=== PATIENT | male | born 1985 | race Caucasian/White ===

== ENCOUNTER 2017-10-02 22:15 | Inpatient (IN) | payer BC, OTHER ==
--- NOTE | 2017-10-03 00:36 | ED ---
Altered Mental Status - HPI Summary HPI Summary: Pt is a 32 y/o M who came to ED for MHE as he is concerned mental illness is, "Getting out of control". Pt reports that he had "bad" depression at the beginning of the summer which has progressively worsened. He states he cannot sleep, that his muscles feel tense, and that he feels confused and axious. He denies HI, SI, and any other medical problems. Pt notes marijuana worsens symptoms and states he has schizoaffective disorder. - History Of Current Complaint Chief Complaint: EDMentalHealth Stated Complaint: MHE Time Seen by Provider: 10/02/17 22:26 Hx Obtained From: Patient Onset/Duration: Still Present Timing: Lasting Weeks - beginning of summer Aggravating Factor(s): Other - marijuana usage Alleviating Factor(s): Nothing Associated Signs And Symptoms: Positive: Recently Depressed - Allergies/Home Medications Allergies/Adverse Reactions: Allergies Allergy/AdvReac Type Severity Reaction Status Date / Time No Known Allergies Allergy Verified 10/02/17 22:17 Home Medications: Home Medications NK [No Home Medications Reported] 10/03/17 [History Confirmed 10/03/17] PMH/Surg Hx/FS Hx/Imm Hx Sensory History: Denies: Hx Legally Blind EENT History: Denies: Hx Deafness - Immunization History Date of Tetanus Vaccine: utd Date of Influenza Vaccine: none Infectious Disease History: No Infectious Disease History: Denies: Traveled Outside the [place] in Last 30 Days - Family History Known Family History: Negative: Blood Disorder - Social History Alcohol Use: Rare Substance Use Type: Reports: Cocaine, Heroin, Marijuana Substance Use Comment - Amount & Last Used: yesterday Smoking Status (MU): Former Smoker Review of Systems Negative: Fever Positive: Other - muscle tenseness Psychological: Other - depressive feeling, inability to sleep, anxious, confused feeling All Other Systems Reviewed And Are Negative: Yes Physical Exam - Summary Physical Exam Summary: Appearance: Well-appearing, Well-nourished, lying in bed comfortably Skin: Warm, dry, no obvious rash Eyes: sclera anicteric, no conjunctival pallor ENT: mucous membranes moist, pharynx appears normal Neck: Supple, nontender Respiratory: Clear to auscultation, no signs of respiratory distress Cardiovascular: Normal S1, S2. No murmurs. Normal distal pulses in tibial and radial bilaterally. Abdomen: Soft, nontender, normal active bowel sounds present Musculoskeletal: Normal, Strength/ROM Intact Neurological: A&Ox3, awake and alert, mentation is normal, speech is fluent and appropriate Psychiatric: affect is normal, does not appear anxious or depressed Triage Information Reviewed: Yes Vital Signs On Initial Exam: Initial Vitals Temp Pulse Resp BP Pulse Ox 99 F 102 17 157/93 95 10/02/17 22:18 10/02/17 22:18 10/02/17 22:18 10/02/17 22:18 10/02/17 22:18 Vital Signs Reviewed: Yes Diagnostics - Vital Signs Vital Signs Temp Pulse Resp BP Pulse Ox 10/02/17 22:18 99 F 102 17 157/93 95 - Laboratory Lab Statement: Any lab studies that have been ordered have been reviewed, and results considered in the medical decision making process. Altered Mental Statu Course/Dx - Diagnoses Provider Diagnoses: Schizoaffective disorder Discharge - Sign-Out/Discharge Documenting (check all that apply): Patient Departure - Discharge Plan Condition: Fair Disposition: PSYCHIATRIC FACILITY-[facility] [place] - Billing Disposition and Condition Condition: FAIR Disposition: Psychiatric Facility [facility] [place]
[2017-10-03] MEDS ORDERED: Acetaminophen TAB* 325 MG PO PRN (04:11)
[2017-10-03] MEDS ORDERED: CMC:Desvenlafaxine (NF) 50 MG TAB PO SCH (09:00)
[2017-10-03] MEDS ORDERED: DESVENLAFAXINE 25 MG PO SCH (09:00)
[2017-10-03] MEDS ORDERED: Paliperidone ER TAB* 1.5 MG TAB.ER PO SCH (09:00)
[2017-10-03] MEDS ORDERED: Desvenlafaxine (NF) 50 MG TAB PO ONE (11:00)
[2017-10-03] MEDS ORDERED: LORazepam TAB(*) 1 MG ONE (11:06)
[2017-10-03] MEDS ORDERED: LORazepam INJ* 2 MG/ML 1 ML VIAL IM ONE (11:30)
[2017-10-03] MEDS: Vitamin THERAPEUTIC TAB PO SCH (12:47)
[2017-10-03] MEDS: Amantadine CAP* 100 MG PO SCH ×2 (12:47→20:43)
[2017-10-03] MEDS: LAMOTRIGINE 300 MG PO SCH (14:45)
[2017-10-03] MEDS: Diazepam TAB(*) 5 MG PO SCH ×2 (16:19→20:43)
--- NOTE | 2017-10-03 22:33 | HP ---
HISTORY AND PHYSICAL: DATE OF ADMISSION: 10/03/17 PROVIDER: Delphine Suh NP, in Psychiatry. SUPERVISING PHYSICIAN: Mauricio Ramos MD * (DICTATED BY DELPHINE SUH NP ) JUSTIFICATION FOR ADMISSION: The patient is in need of 24-hour supervision and care secondary to gross disorganization. CHIEF COMPLAINT: "I don't really know, I'm getting worse." HISTORY OF PRESENT ILLNESS: The patient is a 32-year-old single white male with a history of schizoaffective disorder, who arrives, brought in by himself and is on a voluntary status after deciding that he was getting sicker and he did not know how to get better. The story is hard to come by as he was catatonic this morning and does not feel like talking today. What can be gathered from collateral from the [facility] is that he has recently moved to [place] in August and the stress perhaps has gotten to him causing him to begin to go down a road of mild psychosis that continues to get worse. PAST PSYCHIATRIC HISTORY: Bob has several previous admissions to other hospitals. He did not offer those locations. He moved recently from [place] and had a therapist and a prescriber there. He is not endorsing suicidal or homicidal ideation. He did hint that he could be violent. It is unclear as he is not currently a good historian as to trauma, TBI, or previous psych meds. PAST MEDICAL HISTORY: Difficult to ascertain as he was unwilling to talk at this time and was very anxious. FAMILY HISTORY: On mom's side, there is bipolar disorder for 2 generations. SOCIAL HISTORY: He is from [place]. He has a sister, they are not close, it does not appear. His mom and dad live in [place]. He is on SSI. He does not have employment. SUBSTANCE ABUSE HISTORY: He is not a nicotine user and has recently smoked marijuana and states that that made it much worse. REVIEW OF SYSTEMS: The patient reports feeling fatigued. He denies shortness of breath, heat or cold intolerance, chest pain, or abdominal pain. He denies neurological symptoms. He denies fevers or changes in weight. PHYSICAL EXAMINATION VITAL SIGNS: At 7:40 this morning, 99.7 temperature, pulse 107, respirations 16 , oxygen saturation 98%, blood pressure 136/67. For further exam data, please see the emergency department records. MENTAL STATUS EXAMINATION: This is a somewhat tall, averagely built man with a luxurious aguilera and a very shiny bald head. He is clearly anxious and is not in a talkative mood. He denies SI and HI. His insight and judgment are poor. He is alert and oriented x3. LABORATORY DATA: There are no current laboratory data. DIAGNOSES: Bath I: Schizoaffective disorder. Bath II: Deferred. IMPRESSION: This is a 32-year-old man who has had multiple hospitalizations and brought himself to the hospital given the insight that he was getting worse and he was afraid of becoming psychotic. PLAN: The patient is admitted to the adult behavioral health unit and placed on q.15-minute checks for his own safety. He is encouraged to participate in supportive milieu, individual, and group therapies. Estimated length of stay is 5 to 7 days. We may obtain an MMPI for diagnostic clarification. We will titrate medications to efficacy and monitor for mood and thought content. DELPHINE SUH, DANIA [id number]/CPS #: [id number] DAVID
[2017-10-04] MEDS ORDERED: LORazepam INJ* 2 MG/ML 1 ML VIAL IM ONE (06:41)
[2017-10-04] MEDS ORDERED: LORazepam INJ* 2 MG/ML 1 ML VIAL ONE (06:45)
[2017-10-04 08:24] LABS: ABS Basophils 0 10^3/ul (0-0.2); ABS Eosinophils 0 10^3/ul (0-0.6); ABS Monocytes 0.3 10^3/ul (0-0.8); ABS Nucleated RBC 0 10^3/ul; Eosinophil % 0.3 % (0-6); Hematocrit 42 % (42-52); Hemoglobin 14.5 g/dl (14.0-18.0); Lymphocyte % 15.1 % (25-47); Mean Corpuscular HGB Conc 34 g/dl (31-36); Mean Corpuscular Hemoglobin 31 pg (27-31); Mean Corpuscular Volume 91 fL (80-94); Mean Platelet Volume 8.4 um3 (7.4-10.4); Nucleated Red Blood Cells % 0; Platelet Count 245 10^3/ul (150-450); Red Blood Count 4.67 10^6/ul (4.00-5.40); Red Cell Distribution Width 14 % (10.5-15); White Blood Count 6.3 10^3/ul (3.5-10.8)
[2017-10-04 08:41] LABS: EGFR Non-African American 125.3 (>60)
[2017-10-04] MEDS: Amantadine CAP* 100 MG PO SCH ×2 (13:47→21:23)
[2017-10-04] MEDS: LAMOTRIGINE 300 MG PO SCH (13:51)
[2017-10-04] MEDS: Paliperidone ER TAB* 3 MG TAB.ER PO SCH (13:51)
[2017-10-04] MEDS: Diazepam TAB(*) 5 MG PO SCH ×3 (13:51→21:23)
[2017-10-04] MEDS: Vitamin THERAPEUTIC TAB PO SCH (13:51)
[2017-10-04] MEDS: DESVENLAFAXINE 25 MG PO SCH (13:51)
[2017-10-05] MEDS: Amantadine CAP* 100 MG PO SCH ×2 (08:07→22:07)
[2017-10-05] MEDS: Paliperidone ER TAB* 3 MG TAB.ER PO SCH (08:07)
[2017-10-05] MEDS: Diazepam TAB(*) 5 MG PO SCH ×3 (08:07→22:07)
[2017-10-05] MEDS: DESVENLAFAXINE 25 MG PO SCH (08:08)
[2017-10-05] MEDS: LAMOTRIGINE 300 MG PO SCH (08:08)
[2017-10-05] MEDS: Vitamin THERAPEUTIC TAB PO SCH (08:08)
--- NOTE | 2017-10-05 16:30 | PN ---
Subjective - Subjective Date of Service: 10/05/17 Subjective: Found Bob lying supine in bed with his eyes open. He does not respond to my questions. Staff indicate that he has been partially compliant with meds and meals, has talks occasionally to select staff and has been observing moving. Objective - Appearance Appearance: Well Developed/Nourished Dysmorphic Features: No Hygiene: Normal Grooming: Well Kept - Behavior Psychomotor Activities: Normal Exhibits Abnormal Movement: No - Attitude and Relatedness Attitude and Relatedness: uncooperative Eye Contact: Poor - Affect Observed Affect: Unvariable - Level of Consciousness Level of Consciousness: Alert - Group Participation Particating in Group Activities: No - Medication Management Medication Management Adherence: Partial Assessment - Assessment Merits Inpatient Hospitalization: For Ongoing Evaluation, Consolidate Improvements, For Discharge Planning Inpatient DSM-V Dx: F25.9 Clinical Impression: Ongoing impairing psychotic symptoms (including catatonia), partially compliant with diazepam, he needs continued admission for treatment. Plan - Plan Treatment Plan: Name: LILIANE ROJAS Birthdate: 1985 [id number] Continued Medication Management: Continue Outpt Medication Medications: Current Medications Acetaminophen (Tylenol Tab*) 650 mg PO Q4H PRN PRN Reason: PAIN or TEMP > 101 F Al Hydrox/Mg Hydrox/Simethicone (Maalox Plus*) 30 ml PO Q4H PRN PRN Reason: INDIGESTION Amantadine HCl (Symmetrel Cap*) 100 mg PO BID [facility] Last Admin: 10/05/17 08:07 Dose: 100 mg Desvenlafaxine Succinate (Pristiq (Nf)) 25 mg PO DAILY [facility] Last Admin: 10/05/17 08:08 Dose: 25 mg Diazepam (Valium Tab(*)) 5 mg PO TID [facility] Last Admin: 10/05/17 15:00 Dose: 5 mg Multivitamins (Theragran Tab*) 1 tab PO DAILY [facility] Last Admin: 10/05/17 08:08 Dose: 1 tab [facility]:Lamotrigine Er (300 Mg Tab) 1 dose PO DAILY [facility] Last Admin: 10/05/17 08:08 Dose: 1 dose Paliperidone (Invega Er Tab*) 3 mg PO DAILY [facility] Last Admin: 10/05/17 08:07 Dose: 3 mg - Discharge Plan Discharge Plan: Outpatient Follow Up Outpatient Program: [facility]
[2017-10-06] MEDS: Amantadine CAP* 100 MG PO SCH ×3 (09:38→19:53)
[2017-10-06] MEDS: DESVENLAFAXINE 25 MG PO SCH ×2 (09:38→09:43)
[2017-10-06] MEDS: Diazepam TAB(*) 5 MG PO SCH ×3 (09:38→13:53)
[2017-10-06] MEDS: Paliperidone ER TAB* 3 MG TAB.ER PO SCH ×2 (09:39→09:44)
[2017-10-06] MEDS: LAMOTRIGINE 300 MG PO SCH ×2 (09:39→09:43)
[2017-10-06] MEDS: Vitamin THERAPEUTIC TAB PO SCH ×2 (09:39→09:44)
--- NOTE | 2017-10-06 14:46 | PN ---
Subjective - Subjective Date of Service: 10/06/17 Service Type: 30842 Hosp care 15 min low complexity Subjective: Bob is not responsive to conversation or commands. He continues to lie still much of the time with hand to his head. He has not eaten or had much to drink. We will reinitiate the Ativan 2 mg IM injections for catatonia [id number]. Objective - Appearance Appearance: Well Developed/Nourished Dysmorphic Features: No Hygiene: Normal Grooming: Disheveled - Behavior Psychomotor Activities: Abnormal-Decreased Exhibits Abnormal Movement: Yes - Attitude and Relatedness Attitude and Relatedness: catatonic Eye Contact: Poor - Speech Latencies: Long Quantity: Terse - Affect Observed Affect: Unvariable - Thought Process Patient's Thought Process: Disorganized - Level of Consciousness Level of Consciousness: Obtunded - Impulse Control Impulse Control: Poor - Insight and Judgement Insight and Judgement: Poor - Group Participation Particating in Group Activities: No - Medication Management Medication Management Adherence: Partial - Additional Observations Comments: Bob is catatonic at this time and occasionally "awakens" enough to get up and wander the unit. He then goes back to bed. He is unable to care for himself adequately at this time. Assessment - Assessment Merits Inpatient Hospitalization: For Immediate Safety, To Initiate Treatment, For Ongoing Evaluation Inpatient DSM-V Dx: F25.9 Clinical Impression: Bob carries a diagnosis of schizoaffective disorder. He is presenting with catatonic symptoms at this time and is unable to communicate effectively. Plan - Plan Treatment Plan: Name: LILIANE ROJAS Birthdate: 1985 [id number] Bob will be treated for catatonia and psychosis: Ativan (IM) or Klonopin (oral , as he stated during the only time he was conversant with me, Ativan makes his heart race when he takes it orally) and Invega. Medications: Current Medications Acetaminophen (Tylenol Tab*) 650 mg PO Q4H PRN PRN Reason: PAIN or TEMP > 101 F Al Hydrox/Mg Hydrox/Simethicone (Maalox Plus*) 30 ml PO Q4H PRN PRN Reason: INDIGESTION Amantadine HCl (Symmetrel Cap*) 100 mg PO BID [facility] Last Admin: 10/06/17 09:43 Dose: Not Given Desvenlafaxine Succinate (Pristiq (Nf)) 25 mg PO DAILY [facility] Last Admin: 10/06/17 09:43 Dose: Not Given Lamotrigine (Lamictal Xr (Nf)) 600 mg PO DAILY [facility] Lorazepam (Ativan Inj*) 2 mg IM Q6H PRN PRN Reason: catatonia Multivitamins (Theragran Tab*) 1 tab PO DAILY [facility] Last Admin: 10/06/17 09:44 Dose: Not Given Paliperidone (Invega Er Tab*) 6 mg PO DAILY [facility]
[2017-10-06] MEDS: LORazepam INJ* 2 MG/ML 1 ML VIAL IM PRN (19:51)
[2017-10-07] MEDS ORDERED: Paliperidone ER TAB* 3 MG TAB.ER PO SCH (09:00)
[2017-10-07] MEDS: LORazepam INJ* 2 MG/ML 1 ML VIAL IM PRN ×2 (09:28→15:40)
--- NOTE | 2017-10-07 11:26 | PN ---
Subjective - Subjective Date of Service: 10/07/17 Service Type: 64849 Hosp care 15 min low complexity Subjective: Bob continues with catatonic periods that are interrupted by moments of odd behaviors. He seems to be posturing at times and then engaging in some disorganized behavior such as not swallowing pills he agreed to take, urinating in the water fountain, gesturing intensely. Objective - Appearance Appearance: Well Developed/Nourished Dysmorphic Features: No Grooming: Disheveled - Behavior Psychomotor Activities: Abnormal-Decreased Exhibits Abnormal Movement: Yes - Attitude and Relatedness Attitude and Relatedness: Psychotically Related Eye Contact: Poor - Speech Latencies: Long Quantity: Terse - Affect Observed Affect: Unvariable Affect Consistent with: Dysphoria - Thought Process Patient's Thought Process: Disorganized - Level of Consciousness Level of Consciousness: Obtunded - Impulse Control Impulse Control: Poor - Insight and Judgement Insight and Judgement: Poor - Group Participation Particating in Group Activities: No - Medication Management Medication Management Adherence: Partial - Additional Observations Comments: The largely catatonic nature of Bob's behavior and the intermittent moments of activity do not demonstrate that there is any ability for Bob assert much control over himself, including making his needs known. Assessment - Assessment Merits Inpatient Hospitalization: For Immediate Safety, For Ongoing Evaluation Inpatient DSM-V Dx: F25.9 Clinical Impression: Bob's diagnosis of schizoaffective disorder can be linked with his demonstrated catatonia. Plan - Plan Treatment Plan: Name: LILIANE ROJAS Birthdate: 1985 [id number] Bob will continiue to be treated with Ativan 2 mg IM and Invega. Tomorrow the dose will be reduced back to 3 mg as Bob's typical dose is apparently 1.5 mg. Medications: Current Medications Acetaminophen (Tylenol Tab*) 650 mg PO Q4H PRN PRN Reason: PAIN or TEMP > 101 F Al Hydrox/Mg Hydrox/Simethicone (Maalox Plus*) 30 ml PO Q4H PRN PRN Reason: INDIGESTION Amantadine HCl (Symmetrel Cap*) 100 mg PO BID [facility] Last Admin: 10/06/17 19:53 Dose: Not Given Desvenlafaxine Succinate (Pristiq (Nf)) 25 mg PO DAILY [facility] Last Admin: 10/06/17 09:43 Dose: Not Given Lamotrigine (Lamictal Xr (Nf)) 600 mg PO DAILY [facility] Lorazepam (Ativan Inj*) 2 mg IM Q6H PRN PRN Reason: catatonia Last Admin: 10/07/17 09:28 Dose: 2 mg Multivitamins (Theragran Tab*) 1 tab PO DAILY [facility] Last Admin: 10/06/17 09:44 Dose: Not Given Paliperidone (Invega Er Tab*) 6 mg PO DAILY [facility] - Discharge Plan Discharge Plan: Outpatient Follow Up
[2017-10-07] MEDS: DESVENLAFAXINE 25 MG PO SCH (12:52)
[2017-10-07] MEDS: LAMOTRIGINE 300 MG PO SCH ×2 (12:52→12:55)
[2017-10-07] MEDS: Vitamin THERAPEUTIC TAB PO SCH (12:54)
[2017-10-07] MEDS: Amantadine CAP* 100 MG PO SCH ×2 (12:54→21:50)
[2017-10-07] MEDS ORDERED: clonazePAM TAB(*) 1 MG ONE (13:13)
[2017-10-07] MEDS: clonazePAM TAB(*) 1 MG PO SCH ×2 (13:14→21:50)
[2017-10-08] MEDS: LORazepam INJ* 2 MG/ML 1 ML VIAL IM PRN (01:36)
[2017-10-08] MEDS: DESVENLAFAXINE 25 MG PO SCH (09:51)
[2017-10-08] MEDS: LAMOTRIGINE 300 MG PO SCH (09:51)
[2017-10-08] MEDS: Amantadine CAP* 100 MG PO SCH ×2 (09:51→21:45)
[2017-10-08] MEDS: clonazePAM TAB(*) 1 MG PO SCH ×5 (09:52→21:45)
[2017-10-08] MEDS: Paliperidone ER TAB* 3 MG TAB.ER PO SCH (09:52)
[2017-10-08] MEDS: Vitamin THERAPEUTIC TAB PO SCH (09:52)
--- NOTE | 2017-10-08 13:51 | PN ---
Subjective - Subjective Date of Service: 10/08/17 Service Type: 48348 Hosp care 15 min low complexity Subjective: Bob is lying in bed each time I go to see him. Today he did take medication and received benzodiazepines, which do seem to "loosen" his movements for a time. These movements and the behaviors associated with them are disorganized, however. Objective - Appearance Appearance: Well Developed/Nourished Dysmorphic Features: No Grooming: Disheveled - Behavior Psychomotor Activities: Abnormal-Decreased Exhibits Abnormal Movement: Yes - Attitude and Relatedness Attitude and Relatedness: Psychotically Related Eye Contact: Poor - Speech Latencies: Long Quantity: Terse - Affect Observed Affect: Constricted Affect Consistent with: Dysphoria - Thought Process Patient's Thought Process: Disorganized Thought Content: Yes Suicidal Planning - Has made statements recently that he doesn't deserve to live. - Sensorium Type of Hallucinations: Visual: Yes - Has made statements recently that these hallucinations are occuring., Auditory: Yes - Level of Consciousness Level of Consciousness: Obtunded Orientation: No Intact, No Orientated to Time - Impulse Control Impulse Control: Poor - Insight and Judgement Insight and Judgement: Poor - Group Participation Particating in Group Activities: No - Medication Management Medication Management Adherence: Partial - Additional Observations Comments: The largely catatonic nature of Bob's behavior and the intermittent moments of activity do not demonstrate that there is any ability for Bob assert much control over himself, including making his needs known. Previous notes indicate that he has been experiencing hallucinations. This has not been assessed recently as he has not been communicative. Assessment - Assessment Merits Inpatient Hospitalization: For Immediate Safety, For Ongoing Evaluation Inpatient DSM-V Dx: F25.9 Clinical Impression: Bob's diagnosis of schizoaffective disorder can be linked with his demonstrated catatonia. Bob's presentation does not seem to be improving. Plan - Plan Treatment Plan: Name: LILIANE ROJAS Birthdate: 1985 [id number] Bob will continiue to be treated with Ativan 2 mg IM and Invega. Tomorrow the dose will be reduced back to 3 mg as Bob's typical dose is apparently 1.5 mg and 6 mg may be overwhelming to him and his body, thus causing other, undesirable side effects. Medications: Current Medications Acetaminophen (Tylenol Tab*) 650 mg PO Q4H PRN PRN Reason: PAIN or TEMP > 101 F Al Hydrox/Mg Hydrox/Simethicone (Maalox Plus*) 30 ml PO Q4H PRN PRN Reason: INDIGESTION Amantadine HCl (Symmetrel Cap*) 100 mg PO BID [facility] Last Admin: 10/08/17 09:51 Dose: 100 mg Clonazepam (Klonopin Tab(*)) 1 mg PO TID [facility] Last Admin: 10/08/17 13:16 Dose: Not Given Desvenlafaxine Succinate (Pristiq (Nf)) 25 mg PO DAILY [facility] Last Admin: 10/08/17 09:51 Dose: 25 mg Lamotrigine (Lamictal Xr (Nf)) 600 mg PO DAILY [facility] Last Admin: 10/08/17 09:51 Dose: 600 mg Lorazepam (Ativan Inj*) 2 mg IM Q6H PRN PRN Reason: catatonia Last Admin: 10/08/17 01:36 Dose: 2 mg Multivitamins (Theragran Tab*) 1 tab PO DAILY [facility] Last Admin: 10/08/17 09:52 Dose: 1 tab Paliperidone (Invega Er Tab*) 3 mg PO DAILY [facility] Last Admin: 10/08/17 09:52 Dose: 3 mg
[2017-10-09] MEDS: clonazePAM TAB(*) 1 MG PO SCH (08:59)
[2017-10-09] MEDS: Amantadine CAP* 100 MG PO SCH ×2 (08:59→21:48)
[2017-10-09] MEDS: Paliperidone ER TAB* 3 MG TAB.ER PO SCH (08:59)
[2017-10-09] MEDS: Vitamin THERAPEUTIC TAB PO SCH (08:59)
[2017-10-09] MEDS: DESVENLAFAXINE 25 MG PO SCH (09:00)
[2017-10-09] MEDS: LAMOTRIGINE 300 MG PO SCH (09:00)
[2017-10-09] MEDS ORDERED: LORazepam INJ* 2 MG/ML 1 ML VIAL IM PRN (13:00)
[2017-10-09] MEDS ORDERED: LORazepam TAB(*) 1 MG PO SCH (13:00)
--- NOTE | 2017-10-09 14:53 | PN ---
Subjective - Subjective Date of Service: 10/09/17 Service Type: 32231 Hosp care 25 min moderate complexity Subjective: I've been to visit Bob several times and between 1:15 and 3 he's been awake and conversant. We discussed what the plan is, what medication changes we've made, and what his expectations can be going forward. Bob was reserved. He also did not know how to find his room, seeming to struggle with which was right and left. He spoke on the phone with his mom and dad for quite some time. Objective - Appearance Appearance: Well Developed/Nourished, Healthy Appearing Dysmorphic Features: No Hygiene: Normal Grooming: Disheveled - Behavior Psychomotor Activities: Abnormal-Decreased Exhibits Abnormal Movement: Yes - Attitude and Relatedness Attitude and Relatedness: Psychotically Related Eye Contact: Fair - Speech Quality: Unpressured Latencies: Short Quantity: Terse - Mood Patient's Decription of Mood: "Okay" - Affect Observed Affect: Depressed Affect Consistent with: Dysphoria - Thought Process Patient's Thought Process: Impoverished Thought Content: Yes Passive Wish, Yes Paranoid Ideation, No Suicidal Planning, No Homicidal Ideation - Level of Consciousness Level of Consciousness: Lethargic Orientation: Yes Orientated to Place, No Orientated to Time - Impulse Control Impulse Control: Poor - Insight and Judgement Insight and Judgement: Poor - Group Participation Particating in Group Activities: No - Medication Management Medication Management Adherence: Yes - Additional Observations Comments: Bob, this afternoon, became more conversive and talked to his parents for quite some time on the phone. He appears healthy and well and asked reasonable questions. He does endorse being depressed. Assessment - Assessment Merits Inpatient Hospitalization: For Immediate Safety Inpatient DSM-V Dx: F25.9 Clinical Impression: Bob's diagnosis of schizoaffective disorder can be linked with his demonstrated catatonia. Bob's presentation has at least temporarily improved. During his more catatonic states he endorsed suicidal thoughts. At this point he endorses depression. Plan - Plan Treatment Plan: Name: LILIANE ROJAS Birthdate: 1985 [id number] Bob will continiue to be treated with Ativan 2 mg IM and Invega. Today the dose was be reduced back to 3 mg as Bob's typical dose is apparently 1.5 mg and 6 mg may be overwhelming to him and his body, thus causing other, undesirable side effects. Ativan remains as 2 mg Q 6 hours. I spoke with Bob and he was pleasant, although with latencies and some odd relatedness. Continue with this treatment as Bob is tolerating it and he seems to be improving. Medications: Current Medications Acetaminophen (Tylenol Tab*) 650 mg PO Q4H PRN PRN Reason: PAIN or TEMP > 101 F Al Hydrox/Mg Hydrox/Simethicone (Maalox Plus*) 30 ml PO Q4H PRN PRN Reason: INDIGESTION Amantadine HCl (Symmetrel Cap*) 100 mg PO BID [facility] Last Admin: 10/09/17 08:59 Dose: 100 mg Desvenlafaxine Succinate (Pristiq (Nf)) 25 mg PO DAILY [facility] Last Admin: 10/09/17 09:00 Dose: 25 mg Lamotrigine (Lamictal Xr (Nf)) 600 mg PO DAILY [facility] Last Admin: 10/09/17 09:00 Dose: 600 mg Lorazepam (Ativan Inj*) 2 mg IM Q6H PRN PRN Reason: IF PATIENT CANNOT TAKE PO MED Lorazepam (Ativan Tab(*)) 2 mg PO Q6H [facility] Multivitamins (Theragran Tab*) 1 tab PO DAILY [facility] Last Admin: 10/09/17 08:59 Dose: 1 tab Paliperidone (Invega Er Tab*) 3 mg PO DAILY [facility] Last Admin: 10/09/17 08:59 Dose: 3 mg
[2017-10-09] MEDS: LORazepam TAB(*) 1 MG PO SCH (21:48)
[2017-10-10] MEDS: LORazepam TAB(*) 1 MG PO SCH ×4 (02:53→22:18)
--- NOTE | 2017-10-10 09:06 | PN ---
Subjective - Subjective Date of Service: 10/10/17 Service Type: [id number] Hosp care 15 min low complexity Subjective: Patient seen for coverage for Delphine Suh NP. Patient disorganized and lying in another patient's bed. He was informed of this and with prompts, able to be directed to his room. Last evening, he was increasingly oriented and interactive. He identifies that he is improving with current medications. Objective - Appearance Appearance: Well Developed/Nourished Dysmorphic Features: Yes Hygiene: Normal Grooming: Fairly Well Kept - Behavior Psychomotor Activities: Abnormal-Decreased Exhibits Abnormal Movement: Yes - Attitude and Relatedness Attitude and Relatedness: Psychotically Related Eye Contact: Poor - Speech Quality: Unpressured Latencies: Short Quantity: Terse - Mood Patient's Decription of Mood: "Good" - Affect Observed Affect: Depressed Affect Consistent with: Dysphoria - Thought Process Patient's Thought Process: Coherent, Impoverished Thought Content: Yes Passive Wish, Yes Suicidal Planning, Yes Homicidal Ideation, Yes Paranoid Ideation - Sensorium Experiencing Hallucinations: No, Sensorium is Clear Type of Hallucinations: Visual: No, Auditory: No, Command: No - Level of Consciousness Level of Consciousness: Lethargic Orientation: Yes Intact, Yes Orientated to Time, Yes Orientated to Place, Yes Orientated to Person - Impulse Control Impulse Control: Poor - Insight and Judgement Insight and Judgement: Fair - Group Participation Particating in Group Activities: No - Medication Management Medication Management Adherence: Yes Assessment - Assessment Merits Inpatient Hospitalization: For Immediate Safety, For Stabilization, Consolidate Improvements Inpatient DSM-V Dx: F25.9 Clinical Impression: Bob's diagnosis of schizoaffective disorder can be linked with his demonstrated catatonia. Bob's presentation has at least temporarily improved. During his more catatonic states he endorsed suicidal thoughts. At this point he endorses depression. Plan - Plan Treatment Plan: Name: LILIANE ROJAS Birthdate: 1985 [id number] continue acute intensive psychiatric treatment. continue current medications. discharge planning to include family and outpatient providers. Continued Medication Management: Start Medication Medications: Current Medications Acetaminophen (Tylenol Tab*) 650 mg PO Q4H PRN PRN Reason: PAIN or TEMP > 101 F Al Hydrox/Mg Hydrox/Simethicone (Maalox Plus*) 30 ml PO Q4H PRN PRN Reason: INDIGESTION Amantadine HCl (Symmetrel Cap*) 100 mg PO BID [facility] Last Admin: 10/09/17 21:48 Dose: 100 mg Desvenlafaxine Succinate (Pristiq (Nf)) 25 mg PO DAILY [facility] Last Admin: 10/09/17 09:00 Dose: 25 mg Lamotrigine (Lamictal Xr (Nf)) 600 mg PO DAILY [facility] Last Admin: 10/09/17 09:00 Dose: 600 mg Lorazepam (Ativan Inj*) 2 mg IM Q6H PRN PRN Reason: IF PATIENT CANNOT TAKE PO MED Lorazepam (Ativan Tab(*)) 2 mg PO Q6H [facility] Last Admin: 10/10/17 02:53 Dose: Not Given Multivitamins (Theragran Tab*) 1 tab PO DAILY [facility] Last Admin: 10/09/17 08:59 Dose: 1 tab Paliperidone (Invega Er Tab*) 3 mg PO DAILY [facility] Last Admin: 10/09/17 08:59 Dose: 3 mg - Discharge Plan Discharge Plan: Outpatient Follow Up
[2017-10-10] MEDS: LAMOTRIGINE 300 MG PO SCH ×2 (09:48→09:52)
[2017-10-10] MEDS: DESVENLAFAXINE 25 MG PO SCH ×3 (09:51→10:38)
[2017-10-10] MEDS: Amantadine CAP* 100 MG PO SCH ×2 (09:51→20:19)
[2017-10-10] MEDS: Paliperidone ER TAB* 3 MG TAB.ER PO SCH (09:52)
[2017-10-10] MEDS: Vitamin THERAPEUTIC TAB PO SCH (09:52)
[2017-10-11] MEDS: LORazepam TAB(*) 1 MG PO SCH ×4 (05:28→19:02)
[2017-10-11] MEDS: Vitamin THERAPEUTIC TAB PO SCH (09:22)
[2017-10-11] MEDS: Amantadine CAP* 100 MG PO SCH ×2 (09:22→21:08)
[2017-10-11] MEDS: Paliperidone ER TAB* 3 MG TAB.ER PO SCH (09:22)
[2017-10-11] MEDS: DESVENLAFAXINE 25 MG PO SCH (10:06)
[2017-10-11] MEDS: LAMOTRIGINE 300 MG PO SCH (10:06)
[2017-10-12] MEDS: LORazepam TAB(*) 1 MG PO SCH ×4 (07:40→21:05)
[2017-10-12] MEDS: Vitamin THERAPEUTIC TAB PO SCH (09:49)
[2017-10-12] MEDS: Paliperidone ER TAB* 3 MG TAB.ER PO SCH (09:49)
[2017-10-12] MEDS: Amantadine CAP* 100 MG PO SCH ×2 (09:49→21:06)
[2017-10-12] MEDS: LAMOTRIGINE 300 MG PO SCH (09:50)
[2017-10-12] MEDS: DESVENLAFAXINE 25 MG PO SCH (09:50)
--- NOTE | 2017-10-12 18:21 | PN ---
Subjective - Subjective Date of Service: 10/12/17 Service Type: [id number] Hosp care 15 min low complexity Subjective: Bob was in his room because he reports that he cannot tolerate the noise on the unit. Moreover he continues to have visual hallucinations. No more Catatonia reported. Wants to quit doing drugs. Objective - Appearance Appearance: Healthy Appearing Dysmorphic Features: No Hygiene: Mal-odorous Grooming: Disheveled - Behavior Psychomotor Activities: Normal Exhibits Abnormal Movement: No - Attitude and Relatedness Attitude and Relatedness: Cooperative Eye Contact: Fair - Speech Quality: Unpressured Latencies: Normal Quantity: Appropriate - Mood Patient's Decription of Mood: "Okay" - Affect Observed Affect: Non-labile - Thought Process Patient's Thought Process: Coherent, Goal Directed Thought Content: No Passive Wish, No Suicidal Planning, No Homicidal Ideation, No Paranoid Ideation - Sensorium Experiencing Hallucinations: Yes Type of Hallucinations: Visual: Yes, Auditory: No, Command: No - Level of Consciousness Level of Consciousness: Alert Orientation: Yes Intact, Yes Orientated to Time, Yes Orientated to Place, Yes Orientated to Person - Impulse Control Impulse Control: Intact - Insight and Judgement Insight and Judgement: Poor - Group Participation Particating in Group Activities: No - Medication Management Medication Management Adherence: Yes Assessment - Assessment Merits Inpatient Hospitalization: For Immediate Safety, For Stabilization, For Discharge Planning Inpatient DSM-V Dx: F25.9 Clinical Impression: Still symptomatic. Plan - Plan Treatment Plan: Name: LILIANE ROJAS Birthdate: 1985 [id number] Continued Medication Management: Continue Outpt Medication Medications: Current Medications Acetaminophen (Tylenol Tab*) 650 mg PO Q4H PRN PRN Reason: PAIN or TEMP > 101 F Al Hydrox/Mg Hydrox/Simethicone (Maalox Plus*) 30 ml PO Q4H PRN PRN Reason: INDIGESTION Amantadine HCl (Symmetrel Cap*) 100 mg PO BID [facility] Last Admin: 10/12/17 09:49 Dose: 100 mg Desvenlafaxine Succinate (Pristiq (Nf)) 25 mg PO DAILY [facility] Last Admin: 10/12/17 09:50 Dose: 25 mg Lamotrigine (Lamictal Xr (Nf)) 600 mg PO DAILY [facility] Last Admin: 10/12/17 09:50 Dose: 600 mg Lorazepam (Ativan Inj*) 2 mg IM Q6H PRN PRN Reason: IF PATIENT CANNOT TAKE PO MED Lorazepam (Ativan Tab(*)) 2 mg PO Q6H [facility] Last Admin: 10/12/17 14:00 Dose: 2 mg Multivitamins (Theragran Tab*) 1 tab PO DAILY [facility] Last Admin: 10/12/17 09:49 Dose: 1 tab Paliperidone (Invega Er Tab*) 3 mg PO DAILY [facility] Last Admin: 10/12/17 09:49 Dose: 3 mg - Discharge Plan Discharge Plan: Drug/Alcohol Rehab
[2017-10-12] MEDS: Al Hydrox/Mg Hydrox/Simet LIQ* 30 ML UDC PO PRN (21:08)
[2017-10-13] MEDS: Paliperidone ER TAB* 3 MG TAB.ER PO SCH (09:29)
[2017-10-13] MEDS: Amantadine CAP* 100 MG PO SCH ×2 (09:29→21:31)
[2017-10-13] MEDS: LORazepam TAB(*) 1 MG PO SCH ×4 (09:30→21:32)
[2017-10-13] MEDS: Vitamin THERAPEUTIC TAB PO SCH (09:30)
[2017-10-13] MEDS: LAMOTRIGINE 300 MG PO SCH (09:31)
[2017-10-13] MEDS: DESVENLAFAXINE 25 MG PO SCH (09:31)
--- NOTE | 2017-10-13 11:45 | PN ---
MHU: Group Therapy Note - Service Type Service Type: [id number] Group Psychotherapy - Cognitive Behavioral Group Therapy ( CBT):Patient was attentive and participatory in CBT programming this morning, and remained in good behavioral control. Jonatan was attentive to discussion and responded positively to direct prompts to engage in conversation briefly.
[2017-10-13] MEDS: Lurasidone(*) 80 MG TAB PO SCH (17:35)
--- NOTE | 2017-10-13 20:14 | PN ---
Subjective - Subjective Date of Service: 10/13/17 Service Type: 20076 Hosp care 35 min high complexity Subjective: Bob is much better today. He is fluently verbal and able to explain himself and give a fairly detailed history of his distant and recent past. Today we are making several changes to his medication regimen. He complains of feeling numb and having sexual dysfunction (inability to have erection). We discuss that this could be due to Pristiq or Invega. He likes neither of these agents. We will discontinue Pristiq and begin Latuda. Ativan is reduced to 1 mg TID with an eye toward discontinuation. For additional details regarding his history, see the addendum to the history and physical. Objective - Appearance Appearance: Well Developed/Nourished, Healthy Appearing Dysmorphic Features: No Hygiene: Normal Grooming: Fairly Well Kept - Behavior Psychomotor Activities: Normal Exhibits Abnormal Movement: No - Attitude and Relatedness Attitude and Relatedness: Cooperative Eye Contact: Good - Speech Quality: Unpressured Latencies: Normal Quantity: Appropriate - Mood Patient's Decription of Mood: better - Affect Observed Affect: Tearful Affect Consistent with: Dysphoria - Thought Process Patient's Thought Process: Coherent, Goal Directed Thought Content: No Passive Wish, No Suicidal Planning, No Homicidal Ideation, No Paranoid Ideation - Sensorium Experiencing Hallucinations: No, Sensorium is Clear Type of Hallucinations: Visual: No, Auditory: No, Command: No - Level of Consciousness Level of Consciousness: Alert Orientation: Yes Intact, Yes Orientated to Time, Yes Orientated to Place, Yes Orientated to Person - Impulse Control Impulse Control: Intact - Insight and Judgement Insight and Judgement: Fair - Group Participation Particating in Group Activities: Yes - Medication Management Medication Management Adherence: Yes - Additional Observations Comments: He does endorse being depressed. He is pleased that he will have clothing and toiletries brought to him so he can look better and feel car cleaner. He is much improved. He appears to be of better than average intelligence. Assessment - Assessment Merits Inpatient Hospitalization: For Immediate Safety Inpatient DSM-V Dx: F25.9 Clinical Impression: Bob's diagnosis of schizoaffective disorder can be linked with his demonstrated catatonia. Bob's presentation has at least temporarily improved. During his more catatonic states he endorsed suicidal thoughts. At this point he endorses depression. He is confused and has memory problems at this time and is unsure of how to manage his affairs, both inside the hospital and out. Plan - Plan Treatment Plan: Name: LILIANE ROJAS Birthdate: 1985 [id number] Bob will be transitioned to Latuda 80 mg and Invega will be tapered to 0 mg. Ativan is reduced to 1 mg TID. Pristiq is discontinued due to Bob disliking it , the addition of Latuda, and sexual side effects. Medications: Current Medications Acetaminophen (Tylenol Tab*) 650 mg PO Q4H PRN PRN Reason: PAIN or TEMP > 101 F Al Hydrox/Mg Hydrox/Simethicone (Maalox Plus*) 30 ml PO Q4H PRN PRN Reason: INDIGESTION Last Admin: 10/12/17 21:08 Dose: 30 ml Amantadine HCl (Symmetrel Cap*) 100 mg PO BID [facility] Last Admin: 10/13/17 09:29 Dose: 100 mg Docusate Sodium (Colace Cap*) 100 mg PO BID [facility] Lamotrigine (Lamictal Xr (Nf)) 600 mg PO DAILY [facility] Last Admin: 10/13/17 09:31 Dose: 600 mg Lorazepam (Ativan Tab(*)) 1 mg PO TID [facility] Lurasidone HCl (Latuda) 80 mg PO 1700 [facility] Last Admin: 10/13/17 17:35 Dose: 80 mg Multivitamins (Theragran Tab*) 1 tab PO DAILY [facility] Last Admin: 10/13/17 09:30 Dose: 1 tab Paliperidone (Invega Er Tab*) 3 mg PO DAILY [facility] Last Admin: 10/13/17 09:29 Dose: 3 mg
[2017-10-13] MEDS: Docusate CAP* 100 MG PO SCH (21:31)
[2017-10-14] MEDS: Paliperidone ER TAB* 3 MG TAB.ER PO SCH (08:58)
[2017-10-14] MEDS: Amantadine CAP* 100 MG PO SCH ×2 (08:58→21:48)
[2017-10-14] MEDS: Docusate CAP* 100 MG PO SCH ×2 (08:58→21:48)
[2017-10-14] MEDS: LORazepam TAB(*) 1 MG PO SCH ×3 (08:58→21:48)
[2017-10-14] MEDS: Vitamin THERAPEUTIC TAB PO SCH (08:59)
[2017-10-14] MEDS: LAMOTRIGINE 300 MG PO SCH (08:59)
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
[2017-10-14] MEDS: Lurasidone(*) 80 MG TAB PO SCH (17:19)
[2017-10-15] MEDS: LAMOTRIGINE 300 MG PO SCH (08:14)
[2017-10-15] MEDS: Docusate CAP* 100 MG PO SCH ×2 (08:14→20:18)
[2017-10-15] MEDS: LORazepam TAB(*) 1 MG PO SCH ×3 (08:14→13:58)
[2017-10-15] MEDS: Amantadine CAP* 100 MG PO SCH ×2 (08:14→20:18)
[2017-10-15] MEDS: Paliperidone ER TAB* 3 MG TAB.ER PO SCH (08:15)
[2017-10-15] MEDS: Vitamin THERAPEUTIC TAB PO SCH (08:15)
--- NOTE | 2017-10-15 11:02 | PN ---
MHU: Group Therapy Note - Service Type Service Type: 03811 Group Psychotherapy - Cognitive Behavioral Group Therapy ( CBT):Patient was attentive and participatory in CBT programming this morning, and remained in good behavioral control. Patient expressed positive insights regarding relevant treatment interventions and goals.
--- NOTE | 2017-10-15 15:10 | PN ---
Subjective - Subjective Date of Service: 10/15/17 Service Type: 61999 Hosp care 25 min moderate complexity Subjective: Bob is doing significantly better. His conversation is based on reality, less anxiety is present, he asks good questions, and his memory, although he is sensitive about it, is much better. The "sensitivity" from yesterday seems to have largely disappeared. he continues to look for reassurance that he is better than he was and finds some humor in what he sees as possibly excessive worries. Objective - Appearance Appearance: Well Developed/Nourished Dysmorphic Features: No Hygiene: Normal Grooming: Well Kept - Behavior Psychomotor Activities: Normal Exhibits Abnormal Movement: No - Attitude and Relatedness Attitude and Relatedness: Well Related Eye Contact: Good - Speech Quality: Unpressured Latencies: Normal Quantity: Appropriate - Mood Patient's Decription of Mood: "Good" - Affect Observed Affect: Good Affect Consistent with: Euthymia - Thought Process Patient's Thought Process: Coherent Thought Content: No Passive Wish, No Suicidal Planning, No Homicidal Ideation, No Paranoid Ideation - Sensorium Experiencing Hallucinations: No, Sensorium is Clear Type of Hallucinations: Visual: No, Auditory: No, Command: No - Level of Consciousness Level of Consciousness: Alert Orientation: Yes Intact, Yes Orientated to Time, Yes Orientated to Place, Yes Orientated to Person - Impulse Control Impulse Control: Intact - Insight and Judgement Insight and Judgement: Fair - Group Participation Particating in Group Activities: Yes - Medication Management Medication Management Adherence: Yes - Additional Observations Comments: He does endorse being depressed. He is much improved. He is working through the medication changes, noting that he becomes more emotional when he takes Ativan. Assessment - Assessment Merits Inpatient Hospitalization: For Immediate Safety, For Stabilization, For Discharge Planning Inpatient DSM-V Dx: F25.9 Clinical Impression: Bob's diagnosis of schizoaffective disorder can be linked with his demonstrated catatonia. Bob's presentation has improved. During his catatonic states he states he had suicidal thoughts and auditory and visual hallucinations. At this point he endorses depression and anxiety. His memory problems are much reduced at this time. He is still unsure of how to manage his affairs, both inside the hospital and out, but he is beginning to make plans and looks forward to discharge planning. Plan - Plan Treatment Plan: Name: LILIANE ROJAS Birthdate: 1985 [id number] Bob will be transitioned to Latuda 80 mg and Invega will be tapered to 0 mg. Ativan is reduced to 0.5 mg TID. Pristiq is discontinued due to Bob disliking it, the addition of Latuda which should cover his depressive symptoms, and sexual side effects. We will reduce Ativan to 0 mg tomorrow. He would like to discuss [facility] and see if he can get some help organizing his life. Medications: Current Medications Acetaminophen (Tylenol Tab*) 650 mg PO Q4H PRN PRN Reason: PAIN or TEMP > 101 F Al Hydrox/Mg Hydrox/Simethicone (Maalox Plus*) 30 ml PO Q4H PRN PRN Reason: INDIGESTION Last Admin: 10/12/17 21:08 Dose: 30 ml Amantadine HCl (Symmetrel Cap*) 100 mg PO BID [facility] Last Admin: 10/15/17 08:14 Dose: 100 mg Docusate Sodium (Colace Cap*) 100 mg PO BID [facility] Last Admin: 10/15/17 08:14 Dose: 100 mg Lamotrigine (Lamictal Xr (Nf)) 600 mg PO DAILY [facility] Last Admin: 10/15/17 08:14 Dose: 600 mg Lorazepam (Ativan Tab(*)) 0.5 mg PO TID [facility] Lurasidone HCl (Latuda) 80 mg PO 1700 [facility] Last Admin: 10/14/17 17:19 Dose: 80 mg Multivitamins (Theragran Tab*) 1 tab PO DAILY [facility] Last Admin: 10/15/17 08:15 Dose: 1 tab Paliperidone (Invega Er*) 1.5 mg PO DAILY [facility] Stop: 10/18/17 00:01
[2017-10-15] MEDS: Lurasidone(*) 80 MG TAB PO SCH (17:09)
[2017-10-15] MEDS: LORazepam TAB(*) 0.5 MG PO SCH (20:19)
[2017-10-16] MEDS ORDERED: Paliperidone ER TAB* 1.5 MG TAB.ER PO SCH (09:00)
[2017-10-16] MEDS: Vitamin THERAPEUTIC TAB PO SCH (09:08)
[2017-10-16] MEDS: Docusate CAP* 100 MG PO SCH (09:09)
[2017-10-16] MEDS: Amantadine CAP* 100 MG PO SCH ×2 (09:09→20:53)
[2017-10-16] MEDS: LORazepam TAB(*) 0.5 MG PO SCH (09:09)
[2017-10-16] MEDS: LAMOTRIGINE 300 MG PO SCH (09:10)
[2017-10-16] MEDS ORDERED: LORazepam TAB(*) 0.5 MG PO PRN (13:31)
[2017-10-16] MEDS ORDERED: cloNIDine TAB* 0.1 MG PO ONE (13:58)
--- NOTE | 2017-10-16 16:52 | PN ---
Subjective - Subjective Date of Service: 10/16/17 Service Type: 09857 Hosp care 25 min moderate complexity Subjective: Bob is concerned that he remains more emotional than usual. His anxiety is also quite high. We spend some time sorting out what the problems are and try to solve the easiest ones first. Bob discusses that his discharge plan is very important to him. Objective - Appearance Appearance: Well Developed/Nourished, Healthy Appearing Dysmorphic Features: No Hygiene: Normal Grooming: Well Kept - Behavior Psychomotor Activities: Normal Exhibits Abnormal Movement: No - Attitude and Relatedness Attitude and Relatedness: Cooperative Eye Contact: Good - Speech Quality: Unpressured Latencies: Normal Quantity: Appropriate - Mood Patient's Decription of Mood: "Okay" - Affect Observed Affect: Labile Affect Consistent with: Dysphoria - Thought Process Patient's Thought Process: Coherent Thought Content: Yes Passive Wish, No Suicidal Planning, No Homicidal Ideation, No Paranoid Ideation - Sensorium Experiencing Hallucinations: No, Sensorium is Clear Type of Hallucinations: Visual: No, Auditory: No, Command: No - Level of Consciousness Level of Consciousness: Alert Orientation: Yes Intact, Yes Orientated to Time, Yes Orientated to Place, Yes Orientated to Person - Impulse Control Impulse Control: Tenuous - Insight and Judgement Insight and Judgement: Fair - Group Participation Particating in Group Activities: Yes - Medication Management Medication Management Adherence: Yes - Additional Observations Comments: He does endorse being depressed. He is much improved. He is working through the medication changes, noting that he becomes more emotional when he takes Ativan. he requested to stop Ativan and Invega today. this request will be honored. Assessment - Assessment Merits Inpatient Hospitalization: For Immediate Safety Inpatient DSM-V Dx: F25.9 Clinical Impression: Bob's diagnosis of schizoaffective disorder can be linked with his demonstrated catatonia. Bob's presentation has improved. During his catatonic states he states he had suicidal thoughts and auditory and visual hallucinations. At this point he endorses depression and anxiety. His memory problems are much reduced at this time. He is still unsure of how to manage his affairs, both inside the hospital and out, but he is beginning to make plans and looks forward to discharge planning. He will meet with Isaura from the [facility] program and [facility]. Plan - Plan Treatment Plan: Name: LILIANE ROJAS Birthdate: 1985 [id number] Bob will be transitioned to Latuda 80 mg and Invega will be tapered to 0 mg. Ativan is reduced to 0.5 mg TID. Pristiq is discontinued due to Bob disliking it, the addition of Latuda which should cover his depressive symptoms, and sexual side effects. We will reduce Ativan to 0 mg and also discontinue Invega. Medications: Current Medications Acetaminophen (Tylenol Tab*) 650 mg PO Q4H PRN PRN Reason: PAIN or TEMP > 101 F Al Hydrox/Mg Hydrox/Simethicone (Maalox Plus*) 30 ml PO Q4H PRN PRN Reason: INDIGESTION Last Admin: 10/12/17 21:08 Dose: 30 ml Amantadine HCl (Symmetrel Cap*) 100 mg PO BID [facility] Last Admin: 10/16/17 09:09 Dose: 100 mg Lamotrigine (Lamictal Xr (Nf)) 600 mg PO DAILY [facility] Last Admin: 10/16/17 09:10 Dose: 600 mg Lorazepam (Ativan Tab(*)) 0.5 mg PO Q6H PRN PRN Reason: ANXIETY Lurasidone HCl (Latuda) 80 mg PO 1700 [facility] Last Admin: 10/15/17 17:09 Dose: 80 mg Multivitamins (Theragran Tab*) 1 tab PO DAILY [facility] Last Admin: 10/16/17 09:08 Dose: 1 tab
[2017-10-16] MEDS: Lurasidone(*) 80 MG TAB PO SCH (18:14)
[2017-10-16] MEDS: Al Hydrox/Mg Hydrox/Simet LIQ* 30 ML UDC PO PRN (20:53)
[2017-10-17] MEDS: LAMOTRIGINE 300 MG PO SCH (08:47)
[2017-10-17] MEDS: Amantadine CAP* 100 MG PO SCH ×2 (08:47→20:57)
[2017-10-17] MEDS: Vitamin THERAPEUTIC TAB PO SCH (08:47)
--- NOTE | 2017-10-17 14:32 | PN ---
Subjective - Subjective Date of Service: 10/17/17 Service Type: 43555 Hosp care 15 min low complexity Subjective: Bob states he's feeling a bit better today, more stable. He didn't have good luck with the clonidiine: it mostly made him feel weird. We discussed his future and he is looking forward to [facility]. He would also like help monitoring his moods. I suggested a WRAP booklet. He states he isn't ready to be discharged on Friday, but he thinks Friday looks good to him. Objective - Appearance Appearance: Well Developed/Nourished, Healthy Appearing Dysmorphic Features: No Hygiene: Normal Grooming: Well Kept - Behavior Psychomotor Activities: Normal Exhibits Abnormal Movement: No - Attitude and Relatedness Attitude and Relatedness: Well Related Eye Contact: Good - Speech Quality: Unpressured Latencies: Normal Quantity: Appropriate - Mood Patient's Decription of Mood: "Good" - Affect Observed Affect: Tearful Affect Consistent with: Dysphoria - Thought Process Patient's Thought Process: Coherent, Goal Directed Thought Content: Yes Passive Wish, No Suicidal Planning, No Homicidal Ideation, No Paranoid Ideation - Sensorium Experiencing Hallucinations: No, Sensorium is Clear Type of Hallucinations: Visual: No, Auditory: No, Command: No - Level of Consciousness Level of Consciousness: Alert Orientation: Yes Intact, Yes Orientated to Time, Yes Orientated to Place, Yes Orientated to Person - Impulse Control Impulse Control: Intact - Insight and Judgement Insight and Judgement: Fair - Group Participation Particating in Group Activities: Yes - Medication Management Medication Management Adherence: Yes - Additional Observations Comments: He does endorse being depressed. He is much improved. He is working through the medication changes, noting that he becomes more emotional when he takes Ativan. he requested to stop Ativan and Invega yesterday. He reports a feeling of fogginess that he is willing to wait through to see if he becomes more clear next week. Assessment - Assessment Merits Inpatient Hospitalization: For Immediate Safety, For Stabilization, For Discharge Planning Inpatient DSM-V Dx: F25.9 Clinical Impression: Bob's diagnosis of schizoaffective disorder can be linked with his demonstrated catatonia. Bob's presentation has improved. During his catatonic states he states he had suicidal thoughts and auditory and visual hallucinations. At this point he endorses depression and anxiety, with anxiety being far worse. His memory problems are much reduced at this time. He is still unsure of how to manage his affairs, both inside the hospital and out, but he is beginning to make plans and looks forward to discharge planning. He will met with Isaura from the [facility] program and [facility] and he is enthusiastic about that. He looks forward to discharge on Friday. Plan - Plan Treatment Plan: Name: LILIANE ROJAS Birthdate: 1985 [id number] Bob will be transitioned to Latuda 80 mg and Invega will be tapered to 0 mg. Ativan is reduced to 0.5 mg TID. Pristiq is discontinued due to Bob disliking it, the addition of Latuda which should cover his depressive symptoms, and sexual side effects. We will reduce Ativan to 0 mg and also discontinue Invega. Medications: Current Medications Acetaminophen (Tylenol Tab*) 650 mg PO Q4H PRN PRN Reason: PAIN or TEMP > 101 F Al Hydrox/Mg Hydrox/Simethicone (Maalox Plus*) 30 ml PO Q4H PRN PRN Reason: INDIGESTION Last Admin: 10/16/17 20:53 Dose: 30 ml Amantadine HCl (Symmetrel Cap*) 100 mg PO BID [facility] Last Admin: 10/17/17 08:47 Dose: Not Given Lamotrigine (Lamictal Xr (Nf)) 600 mg PO DAILY [facility] Last Admin: 10/17/17 08:47 Dose: 600 mg Lorazepam (Ativan Tab(*)) 0.5 mg PO Q6H PRN PRN Reason: ANXIETY Lurasidone HCl (Latuda) 80 mg PO 1700 [facility] Last Admin: 10/16/17 18:14 Dose: 80 mg Multivitamins (Theragran Tab*) 1 tab PO DAILY [facility] Last Admin: 10/17/17 08:47 Dose: 1 tab
[2017-10-17] MEDS: Lurasidone(*) 80 MG TAB PO SCH (17:12)
[2017-10-18] MEDS: Al Hydrox/Mg Hydrox/Simet LIQ* 30 ML UDC PO PRN ×3 (05:09→17:33)
[2017-10-18] MEDS: Amantadine CAP* 100 MG PO SCH ×2 (08:48→20:02)
[2017-10-18] MEDS: Vitamin THERAPEUTIC TAB PO SCH (08:48)
[2017-10-18] MEDS: LAMOTRIGINE 300 MG PO SCH (08:49)
[2017-10-18] MEDS: Lurasidone(*) 80 MG TAB PO SCH (17:33)
[2017-10-19] MEDS: Vitamin THERAPEUTIC TAB PO SCH (08:51)
[2017-10-19] MEDS: Amantadine CAP* 100 MG PO SCH ×2 (08:52→20:11)
[2017-10-19] MEDS: LAMOTRIGINE 300 MG PO SCH (08:52)
[2017-10-19] MEDS: Al Hydrox/Mg Hydrox/Simet LIQ* 30 ML UDC PO PRN (08:53)
[2017-10-19] MEDS: Lurasidone(*) 80 MG TAB PO SCH (17:18)
[2017-10-19] MEDS ORDERED: Zolpidem TAB* 10 MG PO ONE (21:00)
[2017-10-20 07:49] VITALS: BP 127/75
[2017-10-20] MEDS: Amantadine CAP* 100 MG PO SCH (08:58)
[2017-10-20] MEDS: Vitamin THERAPEUTIC TAB PO SCH (08:59)
[2017-10-20] MEDS: LAMOTRIGINE 300 MG PO SCH (08:59)
[2017-10-20] MEDS ORDERED: Lurasidone(*) 80 MG TAB PO SCH (14:00)
--- NOTE | 2017-10-22 01:44 | DS ---
CC: Dr. Tim Rodriguez, [facility] * DISCHARGE SUMMARY: DATE OF ADMISSION: 10/03/17 DATE OF DISCHARGE: 10/20/17 PROVIDER: Delphine Suh NP in Psychiatry. SUPERVISING PHYSICIAN: Dr. Mauricio Ramos.* (DICTATED BY DELPHINE SUH NP ) DIAGNOSES: [place] I: Schizoaffective disorder, bipolar type. [place] II: Deferred. CONDITION AT THE TIME OF DISCHARGE: Significantly improved, psychiatrically cleared, stable. Participated in groups and was social with peers. He is agreeable to discharge. He has done well here psychiatrically. He tolerated new medications very well. He will be attending [facility] and the [facility]. MENTAL STATUS EXAMINATION AT THE TIME OF DISCHARGE: Bob is calm, cooperative and makes good eye contact. He is alert and oriented x3. His grooming is good. His speech pace is normal. His thought processes are logical but he is easily made anxious. He is not psychotic. He is not delusional. He denies AH , VH, SI, and HI. His insight and judgment are good. He is willing to follow up and he is urged to see a therapist and psychiatrist. DISCHARGE INSTRUCTIONS TO THE PATIENT: A. We have: 1. Lamotrigine XR 600 mg daily. 2. Lurasidone 80 mg at dinner time. B. Diet: Vegetarian. C. Activities: As tolerated. He is a nonsmoker. There are no studies pending at the time of discharge. D. Followup Care: He has appointments with [facility] and with [facility]. E. Substance abuse followup: Not indicated at this time. HOSPITAL COURSE: Part A: Chief complaint: "I don't really know I am getting worse." The patient is a 32-year-old single white male with a history of schizoaffective disorder, who arrives, brought in by himself on the voluntary status after deciding that he was getting sicker and he did not know how to get better. The story is hard to come by as he was catatonic this morning and does not feel like talking today. What can be gathered from collaterals from the [facility] is that he had recently moved to [place] in August and the stress perhaps has gotten to him causing him to begin to go down a road with mild psychosis that continues to get worse. During his stay here, the catatonia became worse. He was medicated with 2 mg of Ativan q.6 hours by injection or mouth, whichever he was able to take. Upon improvement, he reported that he was feeling like he was losing time. His memory was poor, that he was having visual and auditory hallucinations during catatonia. We did attempt to increase Invega to 3 mg, but he did indicate that he does not like Invega, so we switched to Latuda. He has had recent losses such as his grandparents dying and each of these led to drug use such as marijuana, ecstasy, acid, cocaine, Sulema, and beer. He is currently isolated, but he is not using drugs. He has a history of suicide attempts. He lives with a roommate, Phillip. He recently moved to the area. He was also catatonic at age 20. Part B: Psychiatric treatment was rendered. The patient was admitted to Adult Behavioral Health Unit and placed on 15-minute checks for safety. He eventually did well on the unit and then went to groups enthusiastically. He interacted with peers somewhat, but it was somewhat overwhelming for him as well. He did tolerate the changes in medications. Latuda 80 mg was started. Invega was stopped. Ativan was started to treat catatonia and then stopped as he did not like being on a benzodiazepine. His hemoglobin A1c was 4.9. His triglycerides are 42, cholesterol 151, LDL cholesterol 94, HDL cholesterol 49. Incidentally, his TSH is 1.44. We did not have an opportunity to meet with his family, but he was in contact with his mom and dad. No consults were entered. He is much improved upon discharge. Still, as he was waiting, the unit changed shape because of construction, which disoriented Bob. This was troubling for him, but he did not want to stay longer to try to calm down. He just wanted to leave and made a good argument that he would be able to calm down in his own area and be more oriented. As I walked him out to his friend's car and we had to wait a few minutes, he seemed to calm down and gather himself back together and he was happy to see his friend Phillip. DELPHINE SUH, LOCK STITCH CHANNELER [id number]/[facility] #: [id number] DAVID
== END 2017-10-20 15:00 | disposition home or self-care (01) | DRG 750 ==
LOC: ED 22:15 → BSU 10-03 04:04
PROVIDERS: ADMIT Psychiatry & Neurology Psychiatry; ATTEND Psychiatry & Neurology Psychiatry
PROC: GZHZZZZ Group Psychotherapy (ICD-10-PCS; principal; 2017-10-03)
DX: F25.9 Schizoaffective disorder, unspecified (principal); F41.9 Anxiety disorder, unspecified; Z81.8 Family history of other mental and behavioral disorders; Z72.89 Other problems related to lifestyle; Z87.891 Personal history of nicotine dependence; Z56.0 Unemployment, unspecified
CPT/HCPCS: 36415; 80053; 80061; 80307; 83036; 84443; 85025; 90853; 99222; 99231; 99232; 99233; 99238; 99285; A9270-GY; J2060

== ENCOUNTER 2017-10-21 08:34 | Inpatient (IN) | payer OTHER, MEDICAID ==
--- NOTE | 2017-10-21 08:56 | ED ---
Psychiatric Complaint - HPI Summary HPI Summary: Pt is a 32 y/o male with a PMHx of schizoaffective disorder presented to the [facility]p [facility] where he had been hospitalized for about 2 weeks. He returned due to a worsening of sx due to adjustment of medications and is concerned about catatonia. His roommate describes him as loopy as of yesterday. He notes anxiety, catatonia, insomnia,mild delusion and loss of appetite. He denies SI , HI and hallucinations. Pt. uses cannabis but denies EtOH abuse, tobacco use and any lithium prescription. He states being medication compliant. This is scribe Daphne Mauro documenting for attending Dr. Collin Okeefe - History Of Current Complaint Chief Complaint: EDPsychosocial Time Seen by Provider: 10/21/17 08:43 Hx Obtained From: Patient, Family/Technical Assistant - Housemate Onset/Duration: Still Present, Worse Since - Yesterday Timing: Constant Alleviating Factor(s): Nothing Associated Signs And Symptoms: Positive: Sleep Disturbance - Positive: Insomnia , Appetite Change. Negative: Hallucinating Related History: Positive For: Prior Psychiatric Issues Has Suicidal: Denies: Thoughts Has Homicidal: Denies: Thoughts - Allergies/Home Medications Allergies/Adverse Reactions: Allergies Allergy/AdvReac Type Severity Reaction Status Date / Time No Known Allergies Allergy Verified 10/04/17 00:35 PMH/Surg Hx/FS Hx/Imm Hx Previously Healthy: No Musculoskeletal History: Reports: Hx Back Problems - back pain Sensory History: Reports: Hx Contacts or Glasses Denies: Hx Legally Blind, Hx Deafness, Hx Hearing Aid Opthamlomology History: Reports: Hx Contacts or Glasses Denies: Hx Legally Blind Psychiatric History: Reports: Hx Anxiety, Hx Depression, Hx Inpatient Treatment , Hx Community Mental Health Tx, Hx Bipolar Disorder, Hx Suicide Attempt, Hx of Violent Episodes Against Others, Hx Substance Abuse Comment Only: Other Psychiatric Issues/Disorders - schizoaffective disorder - Immunization History Date of Tetanus Vaccine: utd Date of Influenza Vaccine: none Immunizations Up to Date: Yes Infectious Disease History: No Infectious Disease History: Denies: Traveled Outside the [place] in Last 30 Days - Family History Known Family History: Negative: Blood Disorder - Social History Occupation: Unemployed Lives: Dormitory/Roommates Alcohol Use: Rare Hx Substance Use: Yes Substance Use Type: Reports: Cocaine, Heroin, Marijuana Substance Use Comment - Amount & Last Used: yesterday Smoking Status (MU): Former Smoker Review of Systems Negative: Fever Positive: Other - Positive: Loss of appetite Psychological: Other - Positive: Insomnia, anxiety, delusion, catatonia Negative: Hallucinations,SI, HI All Other Systems Reviewed And Are Negative: Yes Physical Exam - Summary Physical Exam Summary: Appearance: Flat affected, does not appear anxious Skin: warm, dry, reflects adequate perfusion Head/face: normal Eyes: EOMI, SOPHIE ENT: normal Neck: supple, non-tender Respiratory: CTA, breath sounds present Cardiovascular: Tachycardic Abdomen: non-tender, soft Bowel Sounds: present Musculoskeletal: normal, strength/ROM intact Neuro: normal, sensory motor intact, A&Ox3 Psych: No suicidal ideations, no hallucinations, no delusional paranoia Triage Information Reviewed: Yes Vital Signs On Initial Exam: Initial Vitals Temp Pulse Resp BP Pulse Ox 98.4 F 109 18 153/95 98 10/21/17 08:36 10/21/17 08:36 10/21/17 08:36 10/21/17 08:36 10/21/17 08:36 Vital Signs Reviewed: Yes Diagnostics - Vital Signs Vital Signs Temp Pulse Resp BP Pulse Ox 10/21/17 08:36 98.4 F 109 18 153/95 98 - Laboratory Lab Statement: Any lab studies that have been ordered have been reviewed, and results considered in the medical decision making process. Course/Dx - Course Course Of Treatment: 08:58- Pt is medically cleared for MHE. 10:30: Pt will be voluntarily admitted with schizoaffective disorder. Patient with long-standing history of mental health disorder with baseline diagnosis of schizoaffective disorder. He was recently discharged yesterday and has not been able to compensate at home. He asked for readmission. He underwent mental health evaluation and was selected for readmission. - Differential Dx/Clinical Impression Provider Diagnosis: Schizoaffective disorder Discharge - Sign-Out/Discharge Documenting (check all that apply): Patient Departure - Admit - Discharge Plan Condition: Stable [facility]errals: No Primary Care Phys,NOPCP [Primary Care Provider] - - Billing Disposition and Condition Condition: STABLE Disposition: Psychiatric Facility [facility]
[2017-10-21] MEDS ORDERED: lamoTRIgine TAB(*) 25 MG ONE (09:09)
[2017-10-21] MEDS ORDERED: LORazepam TAB(*) 1 MG PO ONE (10:30)
[2017-10-21] MEDS ORDERED: Al Hydrox/Mg Hydrox/Simet LIQ* 30 ML UDC PO PRN (10:44)
[2017-10-21] MEDS ORDERED: Acetaminophen TAB* 325 MG PO PRN (10:44)
[2017-10-21] MEDS ORDERED: LORazepam TAB(*) 0.5 MG PO PRN (10:47)
[2017-10-21] MEDS ORDERED: LAMOTRIGINE 300 MG PO SCH (11:00)
[2017-10-21] MEDS ORDERED: Lurasidone(*) 80 MG TAB PO SCH ×2 (14:00→17:00)
[2017-10-21] MEDS ORDERED: LORazepam TAB(*) 1 MG PO PRN (15:07)
[2017-10-21] MEDS: LORazepam TAB(*) 1 MG PO PRN (16:01)
[2017-10-21] MEDS: Mirtazapine TAB* 15 MG PO SCH (20:12)
[2017-10-22] MEDS: LAMOTRIGINE 300 MG PO SCH (08:39)
[2017-10-22] MEDS: LORazepam TAB(*) 1 MG PO PRN (08:40)
--- NOTE | 2017-10-22 10:03 | HP ---
HISTORY AND PHYSICAL: DATE OF ADMISSION: 10/21/17 PROVIDER: Delphine Suh NP, in Psychiatry. SUPERVISING PHYSICIAN: Dr. Mauricio Ramos.* (DICTATED BY DELPHINE SUH NP) JUSTIFICATION FOR ADMISSION: The patient is in need of 24-hour supervision and care secondary to gross disorganization. CHIEF COMPLAINT: "I don't know what to do." HISTORY OF PRESENT ILLNESS: The patient is a 32-year-old single white male with a history of schizoaffective disorder, who arrives, brought in by himself on a voluntary status, after being discharged from the hospital on the , going home, not sleeping through the night, taking the incorrect medications, becoming significantly disorganizing believing that he was kicked out of the house, and at this point being so anxious that he is almost incapacitated and he states he is not hallucinating, but his presentation indicates psychosis. As he was just discharged yesterday, I would encourage you to read the discharge summary from 10/20/17. At this point, he is confused and distracted. He is highly anxious and he has been sleepless for 36 hours. PAST PSYCHIATRIC HISTORY: He has been admitted to several locations. He has been treated in [place]. His medications have recently been changed here in the hospital. He denies SI/HI. He denies access to weapons. For other previous information, please see his discharge summary from the . MENTAL STATUS EXAM: This is a tall, averagely built man with a aguilera and a bald head. He is calm and cooperative, but he is highly anxious. His speech is slowed compared to normal. He is dysphoric and scared. His affect is constricted. His thought processes are slowed. His thought content may contain delusions. He is not homicidal or suicidal. He denies auditory and visual hallucinations. His insight is fair. His judgment is good. He is alert and oriented x3. DIAGNOSIS: Schizoaffective disorder, bipolar type. IMPRESSION: This is a 32-year-old man who is struggling with severe schizoaffective disorder including disorganization and confusion. PLAN: The patient is admitted to the adult behavioral health unit and placed on q.15 minute checks for his own safety. He is encouraged to participate in supportive milieu, individual and group therapy. Estimated length of stay is 5 to 7 days. We will titrate medications to efficacy, specifically to look for sleep help, and monitor for mood and thought content. Discharge planning will include family and friend involvement and outpatient providers. DELPHINE SUH, DANIA [id number]/[facility] #: [id number] DAVID
--- NOTE | 2017-10-22 12:14 | PN ---
Subjective - Subjective Date of Service: 10/22/17 Service Type: [id number] Hosp care 15 min low complexity Subjective: Bob is feeling a bit better today. he is puzzled by how he destabilized so much , but upon discussion realizes that he potentially needs a more supportive environment that he also has a little more control over, such as having financial means and access to food and a clean place to live. We discuss medication. he would like an increase in latuda, feeling as though he hasn't had such mental clarity is quite some time and that it has faded slightly from the initial dosing. We will raise to 120 mg. Objective - Appearance Appearance: Well Developed/Nourished, Healthy Appearing Dysmorphic Features: No Hygiene: Normal Grooming: Well Kept - Behavior Psychomotor Activities: Normal Exhibits Abnormal Movement: No - Attitude and Relatedness Attitude and Relatedness: Needy Eye Contact: Good - Speech Quality: Pressured Latencies: Normal Quantity: Appropriate - Mood Patient's Decription of Mood: "Anxious" - Affect Observed Affect: Tense Affect Consistent with: Dysphoria - Thought Process Patient's Thought Process: Goal Directed, Disorganized, Impoverished Thought Content: No Passive Wish, No Suicidal Planning, No Homicidal Ideation, No Paranoid Ideation - Sensorium Experiencing Hallucinations: No, Sensorium is Clear Type of Hallucinations: Visual: No, Auditory: No, Command: No - Level of Consciousness Level of Consciousness: Agitated Orientation: Yes Intact, Yes Orientated to Time, Yes Orientated to Place, Yes Orientated to Person - Impulse Control Impulse Control: Impaired - Insight and Judgement Insight and Judgement: Impaired - Group Participation Particating in Group Activities: Yes - Medication Management Medication Management Adherence: Yes - Additional Observations Comments: Jonatan is most concerned with medication when talking to me. He generally makes sense, but sometimes loses track of the conversation and gets so anxious that he is nearly psychotic and must be calmed down. 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 He feels as though that is true. He could use a higher dose of Latuda and does definitely need more sleep. Plan - Plan Treatment Plan: Name: JONATAN ROJAS Birthdate: 1985 [id number] Continued Medication Management: Different Medication Medications: Current Medications Acetaminophen (Tylenol Tab*) 650 mg PO Q4H PRN PRN Reason: for pain; or Temp >101 F Al Hydrox/Mg Hydrox/Simethicone (Maalox Plus*) 30 ml PO Q4H PRN PRN Reason: INDIGESTION Lamotrigine (Lamictal Xr (Nf)) 600 mg PO DAILY [facility] Last Admin: 10/22/17 08:39 Dose: 600 mg Lorazepam (Ativan Tab(*)) 1 mg PO Q4H PRN PRN Reason: Anxiety/insomnia Last Admin: 10/22/17 08:40 Dose: 1 mg Lurasidone HCl (Latuda) 80 mg PO 1700 [facility] Last Admin: 10/21/17 17:45 Dose: 80 mg Mirtazapine (Remeron Tab*) 7.5 mg PO BEDTIME [facility] Last Admin: 10/21/17 20:12 Dose: 7.5 mg - Discharge Plan Discharge Plan: Outpatient Follow Up Outpatient Program: [facility] Additional Comments: We are increasing Latuda to 120 mg. Other medications will stay the same for now. He will need to look at housing, we hope in concert with is mother and his friend Phillip.
[2017-10-22] MEDS: Lurasidone(*) 120 MG TAB PO SCH (17:27)
[2017-10-22] MEDS: Mirtazapine TAB* 15 MG PO SCH (21:05)
[2017-10-23] MEDS: LAMOTRIGINE 300 MG PO SCH (08:23)
[2017-10-23] MEDS: LORazepam TAB(*) 1 MG PO PRN (08:24)
[2017-10-23] MEDS ORDERED: LORazepam TAB(*) 1 MG PO PRN (11:54)
--- NOTE | 2017-10-23 13:02 | PN ---
[facility]: Group Therapy Note - Service Type Service Type: 50134 Group Psychotherapy - Cognitive Behavioral Group Therapy ( CBT):Patient was attentive and participatory in CBT programming this morning, and remained in good behavioral control. Patient expressed positive insights regarding relevant treatment interventions and goals.
[2017-10-23] MEDS: LORazepam TAB(*) 0.5 MG PO PRN (13:12)
--- NOTE | 2017-10-23 15:08 | PN ---
Subjective - Subjective Date of Service: 10/23/17 Service Type: 08631 Hosp care 15 min low complexity Subjective: Bob is in a good mood, but is highly anxious. he is willing to take PRN Ativan , but he requests that the dosage be lowered from 1 mg to 0.5 mg. While he remains anxious, he is also entertaining himself by playing guitar and hanging out in the milieu. Objective - Appearance Appearance: Well Developed/Nourished, Healthy Appearing Dysmorphic Features: No Hygiene: Normal Grooming: Well Kept - Behavior Psychomotor Activities: Normal Exhibits Abnormal Movement: No - Attitude and Relatedness Attitude and Relatedness: Cooperative Eye Contact: Good - Speech Quality: Unpressured Latencies: Normal Quantity: Appropriate - Mood Patient's Decription of Mood: "Anxious" - Affect Observed Affect: Tense Affect Consistent with: Dysphoria - Thought Process Patient's Thought Process: Coherent, Goal Directed Thought Content: Yes Paranoid Ideation - Appears worried to the point of paranoia., No Passive Wish, No Suicidal Planning, No Homicidal Ideation - Sensorium Experiencing Hallucinations: No, Sensorium is Clear Type of Hallucinations: Visual: No, Auditory: No, Command: No - Level of Consciousness Level of Consciousness: Alert Orientation: Yes Intact, Yes Orientated to Time, Yes Orientated to Place, Yes Orientated to Person - Impulse Control Impulse Control: Intact - Insight and Judgement Insight and Judgement: Fair - Group Participation Particating in Group Activities: Yes - Medication Management Medication Management Adherence: Yes - Additional Observations Comments: Jonatan is most concerned with his discharge plan when we talk. He is also concerned that Ativan 1 mg is making him too drowsy. Assessment - Assessment Merits Inpatient Hospitalization: For Immediate Safety, For Stabilization Inpatient DSM-V Dx: F25.0 Clinical Impression: Bob has improved over yesterday, but he is not as stable as he was last weekend. Bob is doing better. He remains a bit guarded, but he is forward- looking and ready to be discharged next week. Plan - Plan Treatment Plan: Name: JONATAN ROJAS Birthdate: 1985 [id number] Medications: Current Medications Acetaminophen (Tylenol Tab*) 650 mg PO Q4H PRN PRN Reason: for pain; or Temp >101 F Al Hydrox/Mg Hydrox/Simethicone (Maalox Plus*) 30 ml PO Q4H PRN PRN Reason: INDIGESTION Lamotrigine (Lamictal Xr (Nf)) 600 mg PO DAILY [facility] Last Admin: 10/23/17 08:23 Dose: 600 mg Lorazepam (Ativan Tab(*)) 0.5 mg PO Q4H PRN PRN Reason: Anxiety/insomnia/catatonia Last Admin: 10/23/17 13:12 Dose: 0.5 mg Lurasidone HCl (Latuda) 120 mg PO 1700 [facility] Last Admin: 10/22/17 17:27 Dose: 120 mg Mirtazapine (Remeron Tab*) 7.5 mg PO BEDTIME [facility] Last Admin: 10/22/17 21:05 Dose: 7.5 mg - Discharge Plan Discharge Plan: Outpatient Follow Up Outpatient Program: [facility] Additional Comments: We increased Latuda to 120 mg. Ativan was cut to 0.5 mg. He is eager to find out more about housing in the [facility].
--- NOTE | 2017-10-23 15:55 | PN ---
MHU: Group Therapy Note - Service Type Service Type: [id number] Group Psychotherapy - Group Participation Patient Participating in Group: Yes Level of Group Participation: Attentive, Spontaneously Participate Relatedness to Group: Defended - Additional Group Comments Group Comments: Bob participated well. He seemed to understand the topic, but also seemed anxious and possibly paranoid. His contributions were good and accurate and on topic.
[2017-10-23] MEDS: Lurasidone(*) 120 MG TAB PO SCH (17:23)
[2017-10-23] MEDS: Mirtazapine TAB* 15 MG PO SCH (20:07)
[2017-10-24] MEDS: LORazepam TAB(*) 0.5 MG PO PRN ×2 (05:40→10:24)
[2017-10-24] MEDS: LAMOTRIGINE 300 MG PO SCH (08:48)
--- NOTE | 2017-10-24 17:15 | PN ---
Subjective - Subjective Date of Service: 10/24/17 Service Type: 62352 Hosp care 25 min moderate complexity Subjective: Bob remains anxious and has serious concerns about stiffness that he feels in his body. In light of his initial presentation where he was taking only 1.5 mg of Invega and his inability to adequately describe the reasons for his dosing, we might infer that he cannot tolerate higher doses of atypical antipsychotics. We will reduce his dose of Latuda to 60 mg to see if stiffness in arms and legs remains. He is also anxious and doesn't want to take benzodiazepines. At this point, they help to reduce his stiffness in small part and we will continue with Klonopin 0.5 BID. Objective - Appearance Appearance: Well Developed/Nourished, Healthy Appearing Dysmorphic Features: No Hygiene: Normal Grooming: Well Kept - Behavior Psychomotor Activities: Normal Exhibits Abnormal Movement: No - Attitude and Relatedness Attitude and Relatedness: Well Related Eye Contact: Good - Speech Quality: Unpressured Latencies: Normal Quantity: Appropriate - Mood Patient's Decription of Mood: "Anxious" - Affect Observed Affect: Tense Affect Consistent with: Dysphoria - Thought Process Patient's Thought Process: Coherent, Goal Directed Thought Content: No Passive Wish, No Suicidal Planning, No Homicidal Ideation, No Paranoid Ideation - Sensorium Experiencing Hallucinations: No, Sensorium is Clear Type of Hallucinations: Visual: No, Auditory: No, Command: No - Level of Consciousness Level of Consciousness: Agitated Orientation: Yes Intact, Yes Orientated to Time, Yes Orientated to Place, Yes Orientated to Person - Impulse Control Impulse Control: Intact - Insight and Judgement Insight and Judgement: Fair - Group Participation Particating in Group Activities: Yes - Medication Management Medication Management Adherence: Yes - Additional Observations Comments: Jonatan is most concerned with his discharge plan when we talk. 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 Bob is doing better. He remains a bit guarded, but he is forward- looking and ready to be discharged next week. His presentation required further medication changes and these are a bit disconcerting to Bob. Plan - Plan Treatment Plan: Name: JONATAN ROJAS Birthdate: 1985 [id number] Medications: Current Medications Acetaminophen (Tylenol Tab*) 650 mg PO Q4H PRN PRN Reason: for pain; or Temp >101 F Al Hydrox/Mg Hydrox/Simethicone (Maalox Plus*) 30 ml PO Q4H PRN PRN Reason: INDIGESTION Clonazepam (Klonopin Tab(*)) 0.5 mg PO 0900,1700 [facility] Lamotrigine (Lamictal Xr (Nf)) 600 mg PO DAILY [facility] Last Admin: 10/24/17 08:48 Dose: 600 mg Lurasidone HCl (Latuda) 60 mg PO 1700 [facility] Mirtazapine (Remeron Tab*) 7.5 mg PO BEDTIME [facility] Last Admin: 10/23/17 20:07 Dose: 7.5 mg - Discharge Plan Discharge Plan: Outpatient Follow Up Outpatient Program: [facility] Additional Comments: We decreased Latuda to 60 mg. Ativan was changed to clonazepam 0.5 mg. He is eager to find out more about housing in the [facility], but he recognizes that he may not get what he wants or needs immediately. He is growing used to the idea of having help, but he also is very interested in maintaining his independence.
[2017-10-24] MEDS: Lurasidone(*) 60 MG TAB PO SCH (17:38)
[2017-10-24] MEDS: clonazePAM TAB(*) 0.5 MG PO SCH (17:38)
[2017-10-24] MEDS: Mirtazapine TAB* 15 MG PO SCH (20:10)
[2017-10-25] MEDS: clonazePAM TAB(*) 0.5 MG PO SCH ×2 (08:27→17:20)
[2017-10-25] MEDS: LAMOTRIGINE 300 MG PO SCH (08:27)
[2017-10-25] MEDS: Lurasidone(*) 60 MG TAB PO SCH (17:22)
[2017-10-25] MEDS: Mirtazapine TAB* 15 MG PO SCH (21:04)
[2017-10-26] MEDS: LAMOTRIGINE 300 MG PO SCH (08:55)
[2017-10-26] MEDS: clonazePAM TAB(*) 0.5 MG PO SCH (08:55)
[2017-10-26] MEDS ORDERED: LORazepam TAB(*) 0.5 MG PO ONE (14:00)
--- NOTE | 2017-10-26 15:34 | PN ---
Subjective - Subjective Date of Service: 10/26/17 Service Type: 26515 Hosp care 15 min low complexity Subjective: Bob was doing fine all morning today and then this afternoon came to the nursed to complain about severe anxiety. Looked very distressed. Lorazepam 0.5mg given with an order to repeat HS and an hold order for scheduled Klonopin for tonight. Last report indicates he was feeling calmer and resting in quiet room. Objective - Appearance Appearance: Healthy Appearing Dysmorphic Features: No Hygiene: Normal Grooming: Disheveled - Behavior Psychomotor Activities: Normal Exhibits Abnormal Movement: No - Attitude and Relatedness Attitude and Relatedness: Cooperative Eye Contact: Good - Speech Quality: Unpressured Latencies: Normal Quantity: Appropriate - Mood Patient's Decription of Mood: "Anxious" - Affect Observed Affect: Constricted Affect Consistent with: Dysphoria - Thought Process Patient's Thought Process: Coherent, Goal Directed Thought Content: No Passive Wish, No Suicidal Planning, No Homicidal Ideation, No Paranoid Ideation - Sensorium Experiencing Hallucinations: No, Sensorium is Clear Type of Hallucinations: Visual: No, Auditory: No, Command: No - Level of Consciousness Level of Consciousness: Alert Orientation: Yes Intact, Yes Orientated to Time, Yes Orientated to Place, Yes Orientated to Person - Impulse Control Impulse Control: Tenuous - Insight and Judgement Insight and Judgement: Poor - Group Participation Particating in Group Activities: Yes - Medication Management Medication Management Adherence: Yes Assessment - Assessment Merits Inpatient Hospitalization: For Immediate Safety, For Stabilization, Pending Safe DC Plan Inpatient DSM-V Dx: F25.0 Clinical Impression: Still symptomatic and need more time on inpatient unit for stabilization. Plan - Plan Treatment Plan: Name: LILIANE ROJAS Birthdate: 1985 [id number] Continued Medication Management: Continue Outpt Medication Medications: Current Medications Acetaminophen (Tylenol Tab*) 650 mg PO Q4H PRN PRN Reason: for pain; or Temp >101 F Al Hydrox/Mg Hydrox/Simethicone (Maalox Plus*) 30 ml PO Q4H PRN PRN Reason: INDIGESTION Clonazepam (Klonopin Tab(*)) 0.5 mg PO 0900,1700 [facility] Lamotrigine (Lamictal Xr (Nf)) 600 mg PO DAILY [facility] Last Admin: 10/26/17 08:55 Dose: 600 mg Lorazepam (Ativan Tab(*)) 0.5 mg PO BEDTIME [facility] Stop: 10/26/17 21:01 Lurasidone HCl (Latuda) 60 mg PO 1700 [facility] Last Admin: 10/25/17 17:22 Dose: 60 mg Mirtazapine (Remeron Tab*) 7.5 mg PO BEDTIME [facility] Last Admin: 10/25/17 21:04 Dose: 7.5 mg - Discharge Plan Discharge Plan: Outpatient Follow Up Outpatient Program: [facility]
[2017-10-26] MEDS: Lurasidone(*) 60 MG TAB PO SCH (17:35)
[2017-10-26] MEDS: Mirtazapine TAB* 15 MG PO SCH (20:17)
[2017-10-26] MEDS ORDERED: LORazepam TAB(*) 0.5 MG PO SCH (21:00)
[2017-10-27] MEDS ORDERED: clonazePAM TAB(*) 0.5 MG PO SCH ×2 (09:00)
[2017-10-27] MEDS: LAMOTRIGINE 300 MG PO SCH (09:05)
[2017-10-27] MEDS ORDERED: clonazePAM TAB(*) 1 MG PO PRN (11:16)
--- NOTE | 2017-10-27 13:09 | PN ---
MHU: Group Therapy Note - Service Type Service Type: 01398 Group Psychotherapy - Cognitive Behavioral Group Therapy ( CBT):Patient was attentive and participatory in CBT programming this morning, and remained in good behavioral control. Patient expressed positive insights regarding relevant treatment interventions and goals.
--- NOTE | 2017-10-27 16:00 | PN ---
Subjective - Subjective Date of Service: 10/27/17 Service Type: 76523 Hosp care 25 min moderate complexity Subjective: Bob is still feeling unsteady and is lacking confidence in what he can accomplish on his own. His anxiety is very high and he's worried about being home without appropriate medication. He is working hard, writing in his journal , going to groups, participating as best he can. Objective - Appearance Appearance: Well Developed/Nourished, Healthy Appearing Dysmorphic Features: No Hygiene: Normal Grooming: Well Kept - Behavior Psychomotor Activities: Normal Exhibits Abnormal Movement: No - Attitude and Relatedness Attitude and Relatedness: Appropriate Eye Contact: Good - Speech Quality: Unpressured Latencies: Normal Quantity: Appropriate - Mood Patient's Decription of Mood: "Anxious" - Affect Observed Affect: Tense Affect Consistent with: Dysphoria - Thought Process Patient's Thought Process: Coherent, Goal Directed Thought Content: Yes Paranoid Ideation, No Passive Wish, No Suicidal Planning, No Homicidal Ideation - Sensorium Experiencing Hallucinations: No, Sensorium is Clear Type of Hallucinations: Visual: No, Auditory: No, Command: No - Level of Consciousness Level of Consciousness: Agitated Orientation: Yes Intact, Yes Orientated to Time, Yes Orientated to Place, Yes Orientated to Person - Impulse Control Impulse Control: Intact - Insight and Judgement Insight and Judgement: Fair - Group Participation Particating in Group Activities: Yes - Medication Management Medication Management Adherence: Yes - Additional Observations Comments: Jonatan is most concerned with his discharge plan when we talk. 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 He feels like his anxiety will be in the way of appropriate discharge. Assessment - Assessment Merits Inpatient Hospitalization: For Immediate Safety, For Stabilization, For Discharge Planning Inpatient DSM-V Dx: F25.0 Clinical Impression: Bob is doing better. He remains a bit guarded, but he is forward-looking and ready to be discharged this week, with the caveat that he would like to feel more confident and ready. He is on track for discharge this week. Plan - Plan Treatment Plan: Name: JONATAN ROJAS Birthdate: 1985 [id number] Continued Medication Management: Different Medication Medications: Current Medications Acetaminophen (Tylenol Tab*) 650 mg PO Q4H PRN PRN Reason: for pain; or Temp >101 F Al Hydrox/Mg Hydrox/Simethicone (Maalox Plus*) 30 ml PO Q4H PRN PRN Reason: INDIGESTION Clonazepam (Klonopin Tab(*)) 1 mg PO 0900,2100 [facility] Clonazepam (Klonopin Tab(*)) 1 mg PO ONCE PRN PRN Reason: ANXIETY Last Admin: 10/27/17 11:59 Dose: 1 mg Lamotrigine (Lamictal Xr (Nf)) 600 mg PO DAILY [facility] Last Admin: 10/27/17 09:05 Dose: 600 mg Lurasidone HCl (Latuda) 60 mg PO 1700 [facility] Last Admin: 10/26/17 17:35 Dose: 60 mg Mirtazapine (Remeron Tab*) 7.5 mg PO BEDTIME [facility] Last Admin: 10/26/17 20:17 Dose: 7.5 mg - Discharge Plan Discharge Plan: Outpatient Follow Up Outpatient Program: [facility] Additional Comments: We decreased Latuda to 60 mg. He is eager to find out more about housing in the [facility], but he recognizes that he may not get what he wants or needs immediately. He is growing used to the idea of having help, but he also is very interested in maintaining his independence. Klonopin 0.5 mg BID was changed to 1 mg with an additional 1 mg available PRN.
[2017-10-27] MEDS: Lurasidone(*) 60 MG TAB PO SCH (17:58)
[2017-10-27] MEDS: clonazePAM TAB(*) 1 MG PO SCH (20:12)
[2017-10-27] MEDS: Mirtazapine TAB* 15 MG PO SCH (20:13)
[2017-10-28] MEDS: clonazePAM TAB(*) 1 MG PO SCH (08:25)
[2017-10-28] MEDS: LAMOTRIGINE 300 MG PO SCH (08:25)
[2017-10-28] MEDS: clonazePAM TAB(*) 1 MG PO PRN (14:00)
--- NOTE | 2017-10-28 14:16 | PN ---
Subjective - Subjective Date of Service: 10/28/17 Service Type: 97633 Hosp care 15 min low complexity Subjective: Bob is anxious, but less anxious than he was yesterday. he feels like the higher dose of medication could be helpful as well as the relaxation group he recently went to. He is somewhat eager to be discharged but he is even more eager to have a successful discharge. His mom will drive from [place] to pick him up and help him to have a positive experience in the [facility]. Objective - Appearance Appearance: Well Developed/Nourished, Healthy Appearing Dysmorphic Features: No Hygiene: Normal Grooming: Well Kept - Behavior Psychomotor Activities: Normal Exhibits Abnormal Movement: No - Attitude and Relatedness Attitude and Relatedness: Well Related Eye Contact: Good - Speech Quality: Unpressured Latencies: Normal Quantity: Appropriate - Mood Patient's Decription of Mood: "Anxious" - Affect Observed Affect: Tense Affect Consistent with: Dysphoria - Thought Process Patient's Thought Process: Coherent, Goal Directed Thought Content: Yes Paranoid Ideation - Mild, No Passive Wish, No Suicidal Planning, No Homicidal Ideation - Sensorium Experiencing Hallucinations: No, Sensorium is Clear Type of Hallucinations: Visual: No, Auditory: No, Command: No - Level of Consciousness Level of Consciousness: Alert Orientation: Yes Intact, Yes Orientated to Time, Yes Orientated to Place, Yes Orientated to Person - Impulse Control Impulse Control: Intact - Insight and Judgement Insight and Judgement: Good - Group Participation Particating in Group Activities: Yes - Medication Management Medication Management Adherence: Yes - Additional Observations Comments: Jonatan is most concerned with his discharge plan when we talk. He continues to be anxious and is concerned about how this will affect him in the future. Still, he is eager to go. He has made good progress and is more stable than he has been in the past. Assessment - Assessment Merits Inpatient Hospitalization: For Immediate Safety, For Stabilization, For Discharge Planning Inpatient DSM-V Dx: F25.0 Clinical Impression: Bob is doing better. He remains a bit guarded, but he is forward-looking and ready to be discharged this week, with the caveat that he would like to feel more confident and ready. He is on track for discharge this week, tomorrow or . He is doing well and is doing his best to manage his anxiety. Plan - Plan Treatment Plan: Name: JONATAN ROJAS Birthdate: 1985 [id number] Medications: Current Medications Acetaminophen (Tylenol Tab*) 650 mg PO Q4H PRN PRN Reason: for pain; or Temp >101 F Al Hydrox/Mg Hydrox/Simethicone (Maalox Plus*) 30 ml PO Q4H PRN PRN Reason: INDIGESTION Clonazepam (Klonopin Tab(*)) 1 mg PO 0900,2100 [facility] Last Admin: 10/28/17 08:25 Dose: 1 mg Clonazepam (Klonopin Tab(*)) 1 mg PO DAILY PRN PRN Reason: ANXIETY Last Admin: 10/28/17 14:00 Dose: 1 mg Lamotrigine (Lamictal Xr (Nf)) 600 mg PO DAILY [facility] Last Admin: 10/28/17 08:25 Dose: 600 mg Lurasidone HCl (Latuda) 60 mg PO 1700 [facility] Last Admin: 10/27/17 17:58 Dose: 60 mg Mirtazapine (Remeron Tab*) 7.5 mg PO BEDTIME [facility] Last Admin: 10/27/17 20:13 Dose: 7.5 mg - Discharge Plan Discharge Plan: Outpatient Follow Up Outpatient Program: [facility] Additional Comments: We decreased Latuda to 60 mg. He is eager to find out more about housing in the [facility], but he recognizes that he may not get what he wants or needs immediately. He is growing used to the idea of having help, but he also is very interested in maintaining his independence. Klonopin 0.5 mg BID was changed to 1 mg with an additional 1 mg available PRN. The additional dose is proving helpful and will prove helpful in the future. We plan on discharging him to his family.
[2017-10-28] MEDS: Lurasidone(*) 60 MG TAB PO SCH (15:59)
[2017-10-29] MEDS: clonazePAM TAB(*) 1 MG PO SCH ×3 (01:45→21:28)
[2017-10-29] MEDS: Mirtazapine TAB* 15 MG PO SCH ×2 (01:45→21:28)
[2017-10-29 07:56] VITALS: BP 115/72
[2017-10-29] MEDS: LAMOTRIGINE 300 MG PO SCH (09:51)
[2017-10-29] MEDS: clonazePAM TAB(*) 1 MG PO PRN (15:41)
--- NOTE | 2017-10-29 15:55 | PN ---
Subjective - Subjective Date of Service: 10/29/17 Service Type: 35947 Hosp care 25 min moderate complexity Subjective: Spoke with Bob today. he is improving, although slowly and not quickly enough for him. He is having a hard time staying oriented to time. Being in his room is both good and bad in that he can relax and have less stimulation, but he is also not around a clock. He is more irritable, which is likely a good thing as he is finally expressing how he feels. Objective - Appearance Appearance: Well Developed/Nourished Dysmorphic Features: No Hygiene: Normal Grooming: Well Kept - Behavior Psychomotor Activities: Normal Exhibits Abnormal Movement: No - Attitude and Relatedness Attitude and Relatedness: Psychotically Related Eye Contact: Good - Speech Quality: Unpressured Latencies: Normal Quantity: Terse - Mood Patient's Decription of Mood: "Terrible" - Affect Observed Affect: Tense Affect Consistent with: Dysphoria - Thought Process Patient's Thought Process: Coherent, Impoverished Thought Content: Yes Paranoid Ideation, No Passive Wish, No Suicidal Planning, No Homicidal Ideation - Sensorium Experiencing Hallucinations: No, Sensorium is Clear Type of Hallucinations: Visual: No, Auditory: No, Command: No - Level of Consciousness Level of Consciousness: Agitated Orientation: Yes Intact, Yes Orientated to Place, Yes Orientated to Person, No Orientated to Time - Impulse Control Impulse Control: Tenuous - Insight and Judgement Insight and Judgement: Impaired - Group Participation Particating in Group Activities: No - Medication Management Medication Management Adherence: Yes - Additional Observations Comments: Jonatan is most concerned with his discharge plan when we talk. He continues to be anxious and is concerned about how this will affect him in the future. Still, he is eager to go. He has made good progress and is more stable than he has been in the past. Assessment - Assessment Merits Inpatient Hospitalization: For Immediate Safety, For Stabilization Inpatient DSM-V Dx: F25.0 Clinical Impression: Bob is doing better. He remains a bit guarded, but he is forward-looking and ready to be discharged this week, with the caveat that he would like to feel more confident and ready. His plan for discharge is changed a bit, as he requires to be picked up by his mother who is not available until Friday. Further, Bob's recent honest assessment of how he is doing has revealed that he is not as well organized as had been previously thought. Plan - Plan Treatment Plan: Name: JONATAN ROJAS Birthdate: 1985 [id number] Medications: Current Medications Acetaminophen (Tylenol Tab*) 650 mg PO Q4H PRN PRN Reason: for pain; or Temp >101 F Al Hydrox/Mg Hydrox/Simethicone (Maalox Plus*) 30 ml PO Q4H PRN PRN Reason: INDIGESTION Clonazepam (Klonopin Tab(*)) 1 mg PO 0900,2100 [facility] Last Admin: 10/29/17 09:50 Dose: 1 mg Clonazepam (Klonopin Tab(*)) 1 mg PO DAILY PRN PRN Reason: ANXIETY Last Admin: 10/29/17 15:41 Dose: 1 mg Lamotrigine (Lamictal Xr (Nf)) 600 mg PO DAILY [facility] Last Admin: 10/29/17 09:51 Dose: 600 mg Lurasidone HCl (Latuda) 60 mg PO 1700 [facility] Last Admin: 10/28/17 15:59 Dose: 60 mg Mirtazapine (Remeron Tab*) 7.5 mg PO BEDTIME [facility] Last Admin: 10/29/17 01:45 Dose: 7.5 mg - Discharge Plan Discharge Plan: Outpatient Follow Up Outpatient Program: [facility] Additional Comments: We decreased Latuda to 60 mg. He is eager to find out more about housing in the [facility], but he recognizes that he may not get what he wants or needs immediately. He is growing used to the idea of having help, but he also is very interested in maintaining his independence. Klonopin 0.5 mg BID was changed to 1 mg with an additional 1 mg available PRN. The additional dose is proving helpful and will prove helpful in the future. We plan on discharging him to his family on Friday. We will make an effort to have him better oriented.
[2017-10-29] MEDS: Lurasidone(*) 60 MG TAB PO SCH (17:30)
[2017-10-30] MEDS: clonazePAM TAB(*) 1 MG PO SCH ×2 (08:52→20:59)
[2017-10-30] MEDS: LAMOTRIGINE 300 MG PO SCH (08:53)
--- NOTE | 2017-10-30 11:38 | PN ---
MHU: Group Therapy Note - Service Type Service Type: [id number] Group Psychotherapy - Cognitive Behavioral Group Therapy ( CBT):Patient was attentive and participatory in CBT programming this morning, and remained in good behavioral control. Patient expressed positive insights regarding relevant treatment interventions and goals.
--- NOTE | 2017-10-30 16:18 | PN ---
MHU: Group Therapy Note - Service Type Service Type: [id number] Group Psychotherapy - Medication Education Group: Patient was attentive and participatory in group, and remained in good behavioral control. Patient expressed positive insights regarding relevant treatment interventions. Patient stated understanding of material discussed and had appropriate questions.
[2017-10-30] MEDS: Lurasidone(*) 60 MG TAB PO SCH (17:52)
[2017-10-30] MEDS: Mirtazapine TAB* 15 MG PO SCH (20:58)
[2017-10-31] MEDS: clonazePAM TAB(*) 1 MG PO PRN (00:58)
[2017-10-31] MEDS: clonazePAM TAB(*) 1 MG PO SCH ×2 (09:38→20:46)
[2017-10-31] MEDS: LAMOTRIGINE 300 MG PO SCH (09:39)
--- NOTE | 2017-10-31 14:54 | PN ---
Subjective - Subjective Date of Service: 10/31/17 Service Type: 08590 Hosp care 15 min low complexity Subjective: Bob is doing well. His primary complaint at this time is anxiety and attention span, which are likely to be linked. He is preparing for a weekend of reading and collage. His mother is coming on Friday at 2 pm to pick him up. He's aware of the plan. Objective - Appearance Appearance: Well Developed/Nourished, Healthy Appearing Dysmorphic Features: No Hygiene: Normal Grooming: Well Kept - Behavior Psychomotor Activities: Normal Exhibits Abnormal Movement: No - Attitude and Relatedness Attitude and Relatedness: Cooperative Eye Contact: Good - Speech Quality: Unpressured Latencies: Normal Quantity: Appropriate - Mood Patient's Decription of Mood: "Fine" - Affect Observed Affect: Good Affect Consistent with: Euthymia - Thought Process Patient's Thought Process: Coherent Thought Content: No Passive Wish, No Suicidal Planning, No Homicidal Ideation, No Paranoid Ideation - Sensorium Experiencing Hallucinations: No, Sensorium is Clear Type of Hallucinations: Visual: No, Auditory: No, Command: No - Level of Consciousness Level of Consciousness: Alert Orientation: Yes Intact, Yes Orientated to Time, Yes Orientated to Place, Yes Orientated to Person - Impulse Control Impulse Control: Intact - Insight and Judgement Insight and Judgement: Fair - Group Participation Particating in Group Activities: Yes - Medication Management Medication Management Adherence: Yes - Additional Observations Comments: Jonatan is most concerned with his discharge plan when we talk. Still, he is eager to go. He has made good progress and is more stable than he has been in the recent past. He is less irritable today. Assessment - Assessment Merits Inpatient Hospitalization: For Immediate Safety, For Discharge Planning, Pending Safe DC Plan Inpatient DSM-V Dx: F25.0 Clinical Impression: Bob is doing better. He remains a bit guarded, but he is forward-looking and ready to be discharged this week, with the caveat that he would like to feel more confident and ready. His plan for discharge is changed a bit, as he requires to be picked up by his mother who is not available until Friday. Bob appears calm and together today. He is easy to talk to as long as the conversation is short and is grateful for the accommodations made for him. Plan - Plan Treatment Plan: Name: JONATAN ROJAS Birthdate: 1985 [id number] Medications: Current Medications Acetaminophen (Tylenol Tab*) 650 mg PO Q4H PRN PRN Reason: for pain; or Temp >101 F Al Hydrox/Mg Hydrox/Simethicone (Maalox Plus*) 30 ml PO Q4H PRN PRN Reason: INDIGESTION Clonazepam (Klonopin Tab(*)) 1 mg PO 0900,2100 [facility] Last Admin: 10/31/17 09:38 Dose: 1 mg Clonazepam (Klonopin Tab(*)) 1 mg PO DAILY PRN PRN Reason: ANXIETY Last Admin: 10/31/17 00:58 Dose: 1 mg Lamotrigine (Lamictal Xr (Nf)) 600 mg PO DAILY [facility] Last Admin: 10/31/17 09:39 Dose: 600 mg Lurasidone HCl (Latuda) 60 mg PO 1700 [facility] Last Admin: 10/30/17 17:52 Dose: 60 mg Mirtazapine (Remeron Tab*) 7.5 mg PO BEDTIME [facility] Last Admin: 10/30/17 20:58 Dose: 7.5 mg - Discharge Plan Discharge Plan: Outpatient Follow Up Outpatient Program: [facility] Additional Comments: We decreased Latuda to 60 mg. He is eager to find out more about housing in the [facility], but he recognizes that he may not get what he wants or needs immediately. He is growing used to the idea of having help, but he also is very interested in maintaining his independence. Klonopin 0.5 mg BID was changed to 1 mg with an additional 1 mg available PRN. The additional dose is proving helpful and will prove helpful in the future. We plan on discharging him to his family on Friday. Plans for discharge include as few changes as possible and encouragement to maintain low anxiety and full support of family and friends.
[2017-10-31] MEDS: Lurasidone(*) 60 MG TAB PO SCH (17:33)
[2017-10-31] MEDS: Mirtazapine TAB* 15 MG PO SCH (20:46)
[2017-11-01] MEDS: LAMOTRIGINE 300 MG PO SCH (09:44)
[2017-11-01] MEDS: clonazePAM TAB(*) 1 MG PO SCH ×2 (09:45→20:22)
[2017-11-01] MEDS: Lurasidone(*) 60 MG TAB PO SCH (17:26)
--- NOTE | 2017-11-01 18:52 | PN ---
Subjective - Subjective Date of Service: 11/01/17 Service Type: 44592 Hosp care 15 min low complexity Subjective: Bob had little sat back today as couple of his friends didn't show up for visit as planned. His anxiety was worse and required PRN. After support from staffs he felt better but stayed in his room best part of the shift. Otherwise denies SI, HI, hallucinations or delusions. Objective - Appearance Appearance: Healthy Appearing Dysmorphic Features: No Hygiene: Normal Grooming: Fairly Well Kept - Behavior Psychomotor Activities: Normal Exhibits Abnormal Movement: No - Attitude and Relatedness Attitude and Relatedness: Cooperative Eye Contact: Good - Speech Quality: Unpressured Latencies: Normal Quantity: Appropriate - Mood Patient's Decription of Mood: "Okay" - Affect Observed Affect: Constricted Affect Consistent with: Dysphoria - Thought Process Patient's Thought Process: Coherent, Goal Directed Thought Content: No Passive Wish, No Suicidal Planning, No Homicidal Ideation, No Paranoid Ideation - Sensorium Experiencing Hallucinations: No, Sensorium is Clear Type of Hallucinations: Visual: No, Auditory: No, Command: No - Level of Consciousness Level of Consciousness: Alert Orientation: Yes Intact, Yes Orientated to Time, Yes Orientated to Place, Yes Orientated to Person - Impulse Control Impulse Control: Intact - Insight and Judgement Insight and Judgement: Poor - Group Participation Particating in Group Activities: No - Medication Management Medication Management Adherence: Yes Assessment - Assessment Merits Inpatient Hospitalization: For Immediate Safety, For Stabilization, For Discharge Planning Inpatient DSM-V Dx: F25.0 Clinical Impression: Still anxious and need more time on inpatient unit for stabilization. Plan - Plan Treatment Plan: Name: LILIANE ROJAS Birthdate: 1985 [id number] Continued Medication Management: Continue Outpt Medication Medications: Current Medications Acetaminophen (Tylenol Tab*) 650 mg PO Q4H PRN PRN Reason: for pain; or Temp >101 F Al Hydrox/Mg Hydrox/Simethicone (Maalox Plus*) 30 ml PO Q4H PRN PRN Reason: INDIGESTION Clonazepam (Klonopin Tab(*)) 1 mg PO 0900,2100 CARLOS Last Admin: 11/01/17 09:45 Dose: 1 mg Clonazepam (Klonopin Tab(*)) 1 mg PO DAILY PRN PRN Reason: ANXIETY Last Admin: 10/31/17 00:58 Dose: 1 mg Lamotrigine (Lamictal Xr (Nf)) 600 mg PO DAILY [facility] Last Admin: 11/01/17 09:44 Dose: 600 mg Lurasidone HCl (Latuda) 60 mg PO 1700 [facility] Last Admin: 11/01/17 17:26 Dose: 60 mg Mirtazapine (Remeron Tab*) 7.5 mg PO BEDTIME [facility] Last Admin: 10/31/17 20:46 Dose: 7.5 mg - Discharge Plan Discharge Plan: Outpatient Follow Up Outpatient Program: [facility]
[2017-11-01] MEDS: Mirtazapine TAB* 15 MG PO SCH (20:22)
[2017-11-02] MEDS: clonazePAM TAB(*) 1 MG PO SCH ×2 (08:56→20:11)
[2017-11-02] MEDS: LAMOTRIGINE 300 MG PO SCH (08:57)
[2017-11-02] MEDS: Lurasidone(*) 60 MG TAB PO SCH (17:56)
[2017-11-02] MEDS: Mirtazapine TAB* 15 MG PO SCH (20:11)
[2017-11-03] MEDS: LAMOTRIGINE 300 MG PO SCH (08:46)
[2017-11-03] MEDS: clonazePAM TAB(*) 1 MG PO SCH (08:46)
[2017-11-03] MEDS: clonazePAM TAB(*) 1 MG PO PRN (12:20)
[2017-11-03] MEDS: Lurasidone(*) 60 MG TAB PO SCH (17:23)
--- NOTE | 2017-11-04 14:33 | DS ---
DISCHARGE SUMMARY: DATE OF ADMISSION: 10/21/17 DATE OF DISCHARGE: 11/03/17 PROVIDER: Delphine Suh NP in Psychiatry. SUPERVISING PHYSICIAN: Dr. Mauricio Ramos* (dictated by Delphine Suh NP). DIAGNOSES: [place] I: Schizoaffective disorder, bipolar type. [place] II: Deferred. CONDITION AT THE TIME OF DISCHARGE: Significantly improved, psychiatrically cleared, stable. Bob at the beginning of his stay participated in groups. Toward the end of his stay, they became too agitating and so he states himself in red. He was social with select peers. His mom was agreeable to his discharge and she is the one who picks him up. He has done well here psychiatrically. He tolerated Latuda reasonably well. Although, he struggled with high doses and so we reduced them to medium dose. He will attend [facility] and the [facility]. MENTAL STATUS EXAMINATION AT THE TIME OF DISCHARGE: At the time of discharge, the patient is calm and cooperative and makes good eye contact. He is alert and oriented x3. His grooming is good. His speech pace is normal. His thought processes are logical. He is not psychotic, not delusional. He denies AH, VH, SI, and HI. His insight and judgment are fair to good. He is willing to follow up. DISCHARGE INSTRUCTIONS TO THE PATIENT: A. Medications: 1. Klonopin b.i.d. 1 mg with 1 additional mg scheduled p.r.n. for anxiety. 2. Lamictal XR 600 mg daily. 3. Latuda 60 mg at 5 o'clock with meal. 4. Mirtazapine 7.5 mg at bedtime. B. Diet: Regular vegetarian. C. Activities: As tolerated. Bob is a nonsmoker and there are no studies pending at the time of discharge. D. Followup Care: Bob has followup appointments with [facility], at that point they will help refer him to primary care doctor as he is new to the area. E. Substance abuse followup: Not indicated immediately, although he has used substances extensively in his past. HOSPITAL COURSE: Part A: Chief complaint: "I don't really know what to do." The patient is a 32-year-old single white male with a history of schizoaffective disorder, who arrives, brought in by himself on the voluntary status after being discharged from the hospital on the going home not sleeping through the night, taking the incorrect medications, becoming significantly disorganized, believing that he is kicked out of the house and at this point being so anxious that he is almost incapacitated and he states he is not hallucinating, but his presentation indicates psychosis. He was just discharged yesterday. At this point, he is confused and distracted. He is highly anxious and has been sleepless for 36 hours. The discharge summary from 10/21/17 will be very helpful in explaining what occurred in the previous admission, which was only a day before the start of this admission. Part B: Psychiatric treatment was rendered. The patient was admitted to the Adult Behavioral Unit and placed on 15-minute checks for safety. Bob struggled on the unit. He went to some groups. He interacted with some peers. He found the environment quite stimulating and distressing at times. He felt invaded and as though his privacy was not respected. On the other hand, he asked for accommodation appropriately and when he received these, which appeared to be needed by him, he did much better and was able to self soothe. We increased Latuda to 120 from 80 mg and he noted some stiffness and inability to move freely. We reduced the dose back to 60 because he was experienced this mildly at 80 and those symptoms seemed to improve somewhat. It should be noted that when he arrived here at his first admission, he was on 1.5 mg of Invega. He did not remember the reason, but it may be that he does not tolerate antipsychotics well and that some symptoms that caused him to stress are elicited. The Klonopin was started for him with the understanding that as he became more accustomed to his new living situation that would be discontinued and he was agreeable to that. His hemoglobin A1c was 4.9, triglycerides are 42, cholesterol 151, LDL cholesterol 94, HDL cholesterol 49. Incidentally, his TSH is 1.44. We also got a level on his Lamictal because 600 is such a high dose and that was at 0.73, which is right in the middle of the range 2.5 to 15. I did briefly meet with his mom, who seems quite anxious, but was very supportive of Bob and was pleasant to talk to. She was eager to take him home and take care of him. She is taking him I believe to the hotel where he can become more accustomed to be in the outpatient world in [place]. No consults were entered in this visit. Bob is in significantly better shape. He is welcome to return to the hospital if he needs to. I believe he will do well on the outpatient world with enough support. DELPHINE SUH, DANIA [id number]/[facility] #: [id number] DAVID
== END 2017-11-03 17:45 | disposition home or self-care (01) | DRG 750 ==
LOC: ED 08:34 → BSU 10:44 → ED 13:15 → BSU 10-28 22:35
PROVIDERS: ADMIT Psychiatry & Neurology Psychiatry; ATTEND Psychiatry & Neurology Psychiatry
DX: F25.0 Schizoaffective disorder, bipolar type (principal); F14.90 Cocaine use, unspecified, uncomplicated; F12.90 Cannabis use, unspecified, uncomplicated; F11.90 Opioid use, unspecified, uncomplicated; Z87.891 Personal history of nicotine dependence; Z79.899 Other long term (current) drug therapy
CPT/HCPCS: 80175; 90853; 99222; 99231; 99232; 99238; 99283; A9270-GY

== ENCOUNTER 2018-06-19 23:17 | Emergency (ER) | payer BC, MEDICAID ==
[2018-06-19] MEDS ORDERED: Nicotine Inhaler* 10 MG AMP INH PRN (23:34)
[2018-06-20 00:13] LABS: ABS Basophils 0 10^3/ul (0-0.2); ABS Eosinophils 0 10^3/ul (0-0.6); ABS Lymphocytes 1.2 10^3/ul (1.0-4.8); ABS Neutrophils 12.5 10^3/ul (1.5-7.7); ABS Nucleated RBC 0 10^3/ul; Eosinophil % 0.3 %; Hematocrit 41 % (36-46); Hemoglobin 14.4 g/dL (14.0-18.0); Mean Corpuscular HGB Conc 35 g/dL (31-36); Mean Corpuscular Hemoglobin 32 pg (27-31); Mean Corpuscular Volume 91 fL (80-94); Mean Platelet Volume 8.3 fL (7.4-10.4); Nucleated Red Blood Cells % 0; Platelet Count 296 10^3/uL (150-450); Red Blood Count 4.54 10^6 /uL (4.18-5.48); Red Cell Distribution Width 13 % (10.5-15); White Blood Count 14.8 10^3/uL (3.5-10.8)
[2018-06-20 00:20] LABS: Urine Appearance Cloudy; Urine Bacteria Absent (Absent); Urine Bilirubin Negative (Negative); Urine Blood 1+ (Negative); Urine Color Amber; Urine Glucose Negative (Negative); Urine Ketones Trace (Negative); Urine Nitrite Negative (Negative); Urine Protein 1+(30 mg/dL) (Negative); Urine Red Blood Cell 1+(3-5/hpf) (Absent); Urine Specific Gravity 1.032 (1.010-1.030); Urine Urobilinogen Negative (Negative); Urine White Blood Cell Trace(0-5/hpf) (Absent)
[2018-06-20 00:25] LABS: ALT 28 U/L (7-52); AST 26 U/L (13-39); Albumin 4.6 g/dL (3.2-5.2); Albumin/Globulin Ratio 1.7 (1-3); Alkaline Phosphatase 76 U/L (34-104); Anion Gap 7 mmol/L (2-11); Blood Urea Nitrogen 16 mg/dL (6-24); CO2 Carbon Dioxide 24 mmol/L (22-32); Calcium 9.4 mg/dL (8.6-10.3); Chloride 106 mmol/L (101-111); EGFR African American 120.6 (>60); EGFR Non-African American 99.7 (>60); Globulin 2.7 g/dL (2-4); Glucose 124 mg/dL (70-100); Sodium 137 mmol/L (135-145); Total Protein 7.3 g/dL (6.4-8.9)
[2018-06-20 00:44] LABS: Barbiturates Urine Screen None Detected (None Detect); Benzodiazepine Urine Screen None Detected (None Detect); Urine Cannabinoids Screen Presumptive Positive (None Detect)
[2018-06-20 00:45] LABS: Acetaminophen < 15 mcg/mL; Alcohol < 10 mg/dL (<10); Salicylate < 2.50 mg/dL (<30)
[2018-06-20 01:00] LABS: TSH (Thyroid Stimulating Horm) 0.65 mcIU/mL (0.34-5.60)
--- NOTE | 2018-06-20 01:44 | ED ---
Medical Screening - HPI Summary HPI Summary: Patient complains of having manic episode, states he can't sleep for 2 days, racing mind, feels is a hostile environment. Patient has pressured speech. History of schizoaffective disorder. Patient states he is compliant with all his medications. Patient followed by Dr. Chapin psychiatrist at [facility], and therapist. Patient states he has pattern of being depressed starting a [place] every year which usually resolves with sprain, but states this year his symptoms are getting worse. Admits to marijuana use, denies EtOH or recreational drug use. Positive smoker. Denies SI, HI. - History of Current Complaint Chief Complaint: EDMentalHealth Stated Complaint: HAVING SYMPTOMS OF YOEL, POSS MHE PER PT Time Seen by Provider: 06/19/18 23:33 Onset/Duration: Started Days Ago Severity: moderate PMH/Surg Hx/FS Hx/Imm Hx Endocrine/Hematology History: Denies: Hx Anticoagulant Therapy Cardiovascular History: Denies: Hx Pacemaker/ICD History: Denies: Hx Dialysis Musculoskeletal History: Reports: Hx Back Problems - back pain Sensory History: Reports: Hx Contacts or Glasses Denies: Hx Legally Blind, Hx Deafness, Hx Hearing Aid Opthamlomology History: Reports: Hx Contacts or Glasses Denies: Hx Legally Blind Psychiatric History: Reports: Hx Anxiety, Hx Depression, Hx Inpatient Treatment , Hx Community Mental Health Tx, Hx Bipolar Disorder, Hx Suicide Attempt, Hx of Violent Episodes Against Others, Hx Substance Abuse Comment Only: Other Psychiatric Issues/Disorders - schizoaffective disorder - Immunization History Date of Tetanus Vaccine: utd Date of Influenza Vaccine: none Infectious Disease History: No Infectious Disease History: Denies: Traveled Outside the [place] in Last 30 Days - Family History Known Family History: Negative: Blood Disorder - Social History Alcohol Use: None Hx Substance Use: Yes Substance Use Type: Reports: Marijuana Substance Use Comment - Amount & Last Used: yesterday Smoking Status (MU): Former Smoker Review of Systems Constitutional: Negative Eyes: Negative ENT: Negative Cardiovascular: Negative Respiratory: Negative Gastrointestinal: Negative Genitourinary: Negative Musculoskeletal: Negative Skin: Negative Neurological: Negative Positive: Anxious All Other Systems Reviewed And Are Negative: Yes Physical Exam Triage Information Reviewed: Yes Vital Signs On Initial Exam: Initial Vitals Temp Pulse Resp BP Pulse Ox 98.9 F 110 20 137/90 97 06/19/18 23:25 06/19/18 23:25 06/19/18 23:25 06/19/18 23:25 06/19/18 23:25 Vital Signs Reviewed: Yes Appearance: Positive: Well-Appearing Skin: Positive: Warm Head/Face: Positive: Normal Head/Face Inspection Eyes: Positive: Normal ENT: Positive: Normal ENT inspection Neck: Positive: Supple Respiratory/Lung Sounds: Positive: Clear to Auscultation Cardiovascular: Positive: Normal Abdomen Description: Positive: Nontender Musculoskeletal: Positive: Normal Neurological: Positive: Normal Psychiatric: Positive: Normal AVPU Assessment: Alert - Rigoberto Coma Scale Best Eye Response: 4 - Spontaneous Best Motor Response: 6 - Obeys Commands Best Verbal Response: 5 - Oriented Coma Scale Total: 15 Diagnostics - Vital Signs Vital Signs Temp Pulse Resp BP Pulse Ox 06/19/18 23:25 98.9 F 110 20 137/90 97 - Laboratory Lab Results: Lab Results 06/19/18 06/19/18 06/20/18 Range/Units 23:59 23:59 00:02 WBC 14.8 H (3.5-10.8) 10^3/uL RBC 4.54 (4.18-5.48) 10^6 /uL Hgb 14.4 (14.0-18.0) g/dL Hct 41 (36-46) % MCV 91 (80-94) fL MCH 32 H (27-31) pg MCHC 35 (31-36) g/dL RDW 13 (10.5-15) % Plt Count 296 (150-450) 10^3/uL MPV 8.3 (7.4-10.4) fL Neut % (Auto) 84.5 % Lymph % (Auto) 8.0 % [place] % (Auto) 7.0 % Eos % (Auto) 0.3 % Baso % (Auto) 0.2 % Absolute Neuts (auto) 12.5 H (1.5-7.7) 10^3/ul Absolute Lymphs (auto) 1.2 (1.0-4.8) 10^3/ul Absolute Monos (auto) 1.0 H (0-0.8) 10^3/ul Absolute Eos (auto) 0 (0-0.6) 10^3/ul Absolute Basos (auto) 0 (0-0.2) 10^3/ul Absolute Nucleated RBC 0 10^3/ul Nucleated RBC % 0 Sodium (135-145) mmol/L Potassium (3.5-5.0) mmol/L Chloride (101-111) mmol/L Carbon Dioxide (22-32) mmol/L Anion Gap (2-11) mmol/L BUN (6-24) mg/dL Creatinine (0.67-1.17) mg/dL Est GFR ( Amer) (>60) Est GFR (Non-Af Amer) (>60) BUN/Creatinine Ratio (8-20) Glucose (70-100) mg/dL Calcium (8.6-10.3) mg/dL Total Bilirubin (0.2-1.0) mg/dL AST (13-39) U/L ALT (7-52) U/L Alkaline Phosphatase (34-104) U/L Total Protein (6.4-8.9) g/dL Albumin (3.2-5.2) g/dL Globulin (2-4) g/dL Albumin/Globulin Ratio (1-3) TSH (0.34-5.60) mcIU/mL Urine Color Florencia Urine Appearance Cloudy Urine pH 5.0 (5-9) Ur Specific [place] 1.032 H (1.010-1.030) Urine Protein 1+(30 mg/dl) A (Negative) Urine Ketones Trace A (Negative) Urine Blood 1+ A (Negative) Urine Nitrate Negative (Negative) Urine Bilirubin Negative (Negative) Urine Urobilinogen Negative (Negative) Ur Leukocyte Esterase Negative (Negative) Urine WBC (Auto) Trace(0-5/hpf) (Absent) Urine RBC (Auto) 1+(3-5/hpf) A (Absent) Urine Bacteria Absent (Absent) Urine Glucose Negative (Negative) Salicylates (<30) mg/dL Urine Opiates Screen None detected (None Detect) Acetaminophen mcg/mL Ur Barbiturates Screen None detected (None Detect) Ur Phencyclidine Scrn None detected (None Detect) Ur Amphetamines Screen None detected (None Detect) U Benzodiazepines Scrn None detected (None Detect) Urine Cocaine Screen None detected (None Detect) U Cannabinoids Screen Presumptive positive A (None Detect) Serum Alcohol (<10) mg/dL 06/20/18 Range/Units 00:02 WBC (3.5-10.8) 10^3/uL RBC (4.18-5.48) 10^6 /uL Hgb (14.0-18.0) g/dL Hct (36-46) % MCV (80-94) fL MCH (27-31) pg MCHC (31-36) g/dL RDW (10.5-15) % Plt Count (150-450) 10^3/uL MPV (7.4-10.4) fL Neut % (Auto) % Lymph % (Auto) % [place] % (Auto) % Eos % (Auto) % Baso % (Auto) % Absolute Neuts (auto) (1.5-7.7) 10^3/ul Absolute Lymphs (auto) (1.0-4.8) 10^3/ul Absolute Monos (auto) (0-0.8) 10^3/ul Absolute Eos (auto) (0-0.6) 10^3/ul Absolute Basos (auto) (0-0.2) 10^3/ul Absolute Nucleated RBC 10^3/ul Nucleated RBC % Sodium 137 (135-145) mmol/L Potassium 4.0 (3.5-5.0) mmol/L Chloride 106 (101-111) mmol/L Carbon Dioxide 24 (22-32) mmol/L Anion Gap 7 (2-11) mmol/L BUN 16 (6-24) mg/dL Creatinine 0.89 (0.67-1.17) mg/dL Est GFR ( Amer) 120.6 (>60) Est GFR (Non-Af Amer) 99.7 (>60) BUN/Creatinine Ratio 18.0 (8-20) Glucose 124 H (70-100) mg/dL Calcium 9.4 (8.6-10.3) mg/dL Total Bilirubin 1.10 H (0.2-1.0) mg/dL AST 26 (13-39) U/L ALT 28 (7-52) U/L Alkaline Phosphatase 76 (34-104) U/L Total Protein 7.3 (6.4-8.9) g/dL Albumin 4.6 (3.2-5.2) g/dL Globulin 2.7 (2-4) g/dL Albumin/Globulin Ratio 1.7 (1-3) TSH 0.65 (0.34-5.60) mcIU/mL Urine Color Urine Appearance Urine pH (5-9) Ur Specific [place] (1.010-1.030) Urine Protein (Negative) Urine Ketones (Negative) Urine Blood (Negative) Urine Nitrate (Negative) Urine Bilirubin (Negative) Urine Urobilinogen (Negative) Ur Leukocyte Esterase (Negative) Urine WBC (Auto) (Absent) Urine RBC (Auto) (Absent) Urine Bacteria (Absent) Urine Glucose (Negative) Salicylates < 2.50 (<30) mg/dL Urine Opiates Screen (None Detect) Acetaminophen < 15 mcg/mL Ur Barbiturates Screen (None Detect) Ur Phencyclidine Scrn (None Detect) Ur Amphetamines Screen (None Detect) U Benzodiazepines Scrn (None Detect) Urine Cocaine Screen (None Detect) U Cannabinoids Screen (None Detect) Serum Alcohol < 10 (<10) mg/dL Result Diagrams: 06/20/18 00:02 06/20/18 00:02 Lab Statement: Any lab studies that have been ordered have been reviewed, and results considered in the medical decision making process. Course/Dx - Course Course Of Treatment: Patient complains of having manic episode, states he can't sleep for 2 days, racing mind, feels is a hostile environment. Patient has pressured speech. History of schizoaffective disorder. Patient states he is compliant with all his medications. Patient followed by Dr. Chapin psychiatrist at [facility], and therapist. Patient states he has pattern of being depressed starting a [place] every year which usually resolves with sprain, but states this year his symptoms are getting worse. Admits to marijuana use, denies EtOH or recreational drug use. Positive smoker. Denies SI, HI. Denies any symptoms of illness, pain or injury. Physical exam unremarkable. Vital signs unremarkable. WBC 14.8. Labs otherwise unremarkable. Mental health evaluation pending. Patient signed out to Dr. wilson - Diagnoses Provider Diagnoses: Schizoaffective disorder, bipolar type Discharge - Sign-Out/Discharge Documenting (check all that apply): Patient Departure Signing out patient TO: Pascual Wilson Patient Received Moderate/Deep Sedation with Procedure: No - Discharge Plan Condition: Fair Disposition: PSYCHIATRIC FACILITY-OTHER Patient Education Materials: Bipolar Disorder (ED), Bipolar Disorder (DC) Referrals: No Primary Care Phys,NOPCP [Primary Care Provider] - Additional Instructions: Per completion of a mental health evaluation, you are cleared for release and do not require inpatient psychiatric hospitalization at this time. Please go to nearest emergency room or call 911 if safety concerns arise or condition worsens. Important Phone Numbers: [facility] [phone] Suicide Prevention and Crisis Services........................ [phone] [place] Suicide Prevention Lifeline............................ [phone] (9728) [facility]....................... [phone] Alcoholics Anonymous............................................... [facility].............. [phone] [place] [employer].............................................. [phone] - Billing Disposition and Condition Condition: FAIR Disposition: Psychiatric Facility Other
--- NOTE | 2018-06-20 04:12 | ED ---
Progress - Progress Note Progress Note: RECEIVING SIGN OUT FROM VIVIAN MONTANA AT SHIFT CHANGE PENDING MHE. Pt will be signed out to Dr. Felix at shift change pending MHE. Course/Dx - Course Course Of Treatment: RECEIVING SIGN OUT FROM VIVIAN MONTANA AT SHIFT CHANGE PENDING MHE. The patient was apparently going to be discharged from EMS when he abruptly became very agitated and combative, requiring medication for same. He will need to be reevaluated by mental health. Pt will be signed out to Dr. Felix at shift change pending MHE - Diagnoses Provider Diagnoses: Schizoaffective disorder, bipolar type Discharge - Sign-Out/Discharge Documenting (check all that apply): Sign-Out Patient, Receiving Sign-Out Signing out patient TO: Pascual Felix - pending MHE Receiving patient FROM: Vivian Dhaliwal - PENDING MHE Patient Received Moderate/Deep Sedation with Procedure: No - Discharge Plan Condition: Fair Disposition: PSYCHIATRIC FACILITY-OTHER Patient Education Materials: Bipolar Disorder (ED), Bipolar Disorder (DC) Referrals: No Primary Care Phys,NOPCP [Primary Care Provider] - Additional Instructions: Per completion of a mental health evaluation, you are cleared for release and do not require inpatient psychiatric hospitalization at this time. Please go to nearest emergency room or call 911 if safety concerns arise or condition worsens. Important Phone Numbers: [facility] [phone] Suicide Prevention and Crisis Services........................ [phone] National Suicide Prevention Lifeline............................ [phone] (7490) [facility]....................... [phone] Alcoholics Anonymous............................................... [facility].............. [phone] [place] [employer].............................................. - Billing Disposition and Condition Condition: FAIR Disposition: Psychiatric Facility Other - Attestation Statements Document Initiated by Carline: Yes Documenting Scribe: Jayjay Merchant Provider For Whom Carline is Documenting (Include Credential): Dr. Pascual Browning MD Scribe Attestation: Jayjay Patrick scribed for Dr. Pascual Browning MD on 06/20/18 at 2353. Scribe Documentation Reviewed: Yes Provider Attestation: The documentation as recorded by the Jayjay rebolledo accurately reflects the service I personally performed and the decisions made by me, Dr. Pascual Browning MD Status of Scribe Document: Viewed
[2018-06-20] MEDS ORDERED: LORazepam INJ* 2 MG/ML 1 ML VIAL ONE (06:15)
[2018-06-20] MEDS ORDERED: Haloperidol INJ IV/IM* 5 MG/ML AMP ONE (06:15)
--- NOTE | 2018-06-20 10:57 | PN ---
ED Flex Patient Progress Note Date of Service: 06/20/18 Subjective: ED day #1 for this 32 y.o. single, white male with a history of schizoaffective disorder. The patient arrived seeking med changes for emergent manic symptoms. He was initially dispositioned for a discharge to home, as we did not feel that he warranted 9.39 status, however, he became violent and threatening towards the crisis mailroom clerk, prompting a response team and stat antipsychotic medications. He is currently sedated and disorganized. Objective: overweight white male in scrubs lying in bed; somnolent but labile prior to medication Assessment: Schizoaffective DO, Bipolar Type Plan: We will resume lurasidone and lamotrigine therapies and admit the patient involuntarily on 9.39 legal status. Since there are no adult beds available on the [facility] we will seek to transfer him to an outside facility. Vital Signs Temp Pulse Resp BP Pulse Ox 98.7 F 106 18 113/67 97 06/20/18 07:10 06/20/18 07:10 06/20/18 07:10 06/20/18 07:10 06/20/18 07:10 Lab Results - Entire Visit 06/20/18 06/20/18 06/19/18 00:02 00:02 23:59 WBC 14.8 H RBC 4.54 Hgb 14.4 Hct 41 MCV 91 MCH 32 H MCHC 35 RDW 13 Plt Count 296 MPV 8.3 Neut % (Auto) 84.5 Lymph % (Auto) 8.0 [place] % (Auto) 7.0 Eos % (Auto) 0.3 Baso % (Auto) 0.2 Absolute Neuts (auto) 12.5 H Absolute Lymphs (auto) 1.2 Absolute Monos (auto) 1.0 H Absolute Eos (auto) 0 Absolute Basos (auto) 0 Absolute Nucleated RBC 0 Nucleated RBC % 0 Sodium 137 Potassium 4.0 Chloride 106 Carbon Dioxide 24 Anion Gap 7 BUN 16 Creatinine 0.89 Est GFR ( Amer) 120.6 Est GFR (Non-Af Amer) 99.7 BUN/Creatinine Ratio 18.0 Glucose 124 H Calcium 9.4 Total Bilirubin 1.10 H AST 26 ALT 28 Alkaline Phosphatase 76 Total Protein 7.3 Albumin 4.6 Globulin 2.7 Albumin/Globulin Ratio 1.7 TSH 0.65 Urine Color Urine Appearance Urine pH Ur Specific [place] Urine Protein Urine Ketones Urine Blood Urine Nitrate Urine Bilirubin Urine Urobilinogen Ur Leukocyte Esterase Urine WBC (Auto) Urine RBC (Auto) Urine Bacteria Urine Glucose Salicylates < 2.50 Urine Opiates Screen None detected Acetaminophen < 15 Ur Barbiturates Screen None detected Ur Phencyclidine Scrn None detected Ur Amphetamines Screen None detected U Benzodiazepines Scrn None detected Urine Cocaine Screen None detected U Cannabinoids Screen Presumptive positive A Serum Alcohol < 10 06/19/18 23:59 WBC RBC Hgb Hct MCV MCH MCHC RDW Plt Count MPV Neut % (Auto) Lymph % (Auto) [place] % (Auto) Eos % (Auto) Baso % (Auto) Absolute Neuts (auto) Absolute Lymphs (auto) Absolute Monos (auto) Absolute Eos (auto) Absolute Basos (auto) Absolute Nucleated RBC Nucleated RBC % Sodium Potassium Chloride Carbon Dioxide Anion Gap BUN Creatinine Est GFR ( Amer) Est GFR (Non-Af Amer) BUN/Creatinine Ratio Glucose Calcium Total Bilirubin AST ALT Alkaline Phosphatase Total Protein Albumin Globulin Albumin/Globulin Ratio TSH Urine Color Florencia Urine Appearance Cloudy Urine pH 5.0 Ur Specific [place] 1.032 H Urine Protein 1+(30 mg/dl) A Urine Ketones Trace A Urine Blood 1+ A Urine Nitrate Negative Urine Bilirubin Negative Urine Urobilinogen Negative Ur Leukocyte Esterase Negative Urine WBC (Auto) Trace(0-5/hpf) Urine RBC (Auto) 1+(3-5/hpf) A Urine Bacteria Absent Urine Glucose Negative Salicylates Urine Opiates Screen Acetaminophen Ur Barbiturates Screen Ur Phencyclidine Scrn Ur Amphetamines Screen U Benzodiazepines Scrn Urine Cocaine Screen U Cannabinoids Screen Serum Alcohol
[2018-06-20] MEDS ORDERED: lamoTRIgine TAB(*) 100 MG PO SCH (11:00)
--- NOTE | 2018-06-20 15:32 | PN ---
ED Flex Patient Progress Note Date of Service: 06/19/18 Subjective: This is a 32 year-old M who is pending admission to [facility] / transfer to another psychiatric facility / discharge to home / or being observed secondary to ara. Pt. examined in bed 6 at 1615. He is sitting on side of bed in NAD. 1:1 outside of room Objective: Vitals: Most recent vital signs documented below. General NAD Laboratory: Current laboratory results documented below. Assessment: Ara Plan: Pending evaluation and disposition. Vital Signs Temp Pulse Resp BP Pulse Ox 98.7 F 106 18 113/67 97 06/20/18 07:10 06/20/18 07:10 06/20/18 07:10 06/20/18 07:10 06/20/18 07:10 Lab Results - Entire Visit 06/20/18 06/20/18 06/19/18 00:02 00:02 23:59 WBC 14.8 H RBC 4.54 Hgb 14.4 Hct 41 MCV 91 MCH 32 H MCHC 35 RDW 13 Plt Count 296 MPV 8.3 Neut % (Auto) 84.5 Lymph % (Auto) 8.0 [place] % (Auto) 7.0 Eos % (Auto) 0.3 Baso % (Auto) 0.2 Absolute Neuts (auto) 12.5 H Absolute Lymphs (auto) 1.2 Absolute Monos (auto) 1.0 H Absolute Eos (auto) 0 Absolute Basos (auto) 0 Absolute Nucleated RBC 0 Nucleated RBC % 0 Sodium 137 Potassium 4.0 Chloride 106 Carbon Dioxide 24 Anion Gap 7 BUN 16 Creatinine 0.89 Est GFR ( Amer) 120.6 Est GFR (Non-Af Amer) 99.7 BUN/Creatinine Ratio 18.0 Glucose 124 H Calcium 9.4 Total Bilirubin 1.10 H AST 26 ALT 28 Alkaline Phosphatase 76 Total Protein 7.3 Albumin 4.6 Globulin 2.7 Albumin/Globulin Ratio 1.7 TSH 0.65 Urine Color Urine Appearance Urine pH Ur Specific [place] Urine Protein Urine Ketones Urine Blood Urine Nitrate Urine Bilirubin Urine Urobilinogen Ur Leukocyte Esterase Urine WBC (Auto) Urine RBC (Auto) Urine Bacteria Urine Glucose Salicylates < 2.50 Urine Opiates Screen None detected Acetaminophen < 15 Ur Barbiturates Screen None detected Ur Phencyclidine Scrn None detected Ur Amphetamines Screen None detected U Benzodiazepines Scrn None detected Urine Cocaine Screen None detected U Cannabinoids Screen Presumptive positive A Serum Alcohol < 10 06/19/18 23:59 WBC RBC Hgb Hct MCV MCH MCHC RDW Plt Count MPV Neut % (Auto) Lymph % (Auto) [place] % (Auto) Eos % (Auto) Baso % (Auto) Absolute Neuts (auto) Absolute Lymphs (auto) Absolute Monos (auto) Absolute Eos (auto) Absolute Basos (auto) Absolute Nucleated RBC Nucleated RBC % Sodium Potassium Chloride Carbon Dioxide Anion Gap BUN Creatinine Est GFR ( Amer) Est GFR (Non-Af Amer) BUN/Creatinine Ratio Glucose Calcium Total Bilirubin AST ALT Alkaline Phosphatase Total Protein Albumin Globulin Albumin/Globulin Ratio TSH Urine Color [place] Urine Appearance Cloudy Urine pH 5.0 Ur Specific [place] 1.032 H Urine Protein 1+(30 mg/dl) A Urine Ketones Trace A Urine Blood 1+ A Urine Nitrate Negative Urine Bilirubin Negative Urine Urobilinogen Negative Ur Leukocyte Esterase Negative Urine WBC (Auto) Trace(0-5/hpf) Urine RBC (Auto) 1+(3-5/hpf) A Urine Bacteria Absent Urine Glucose Negative Salicylates Urine Opiates Screen Acetaminophen Ur Barbiturates Screen Ur Phencyclidine Scrn Ur Amphetamines Screen U Benzodiazepines Scrn Urine Cocaine Screen U Cannabinoids Screen Serum Alcohol
[2018-06-20] MEDS ORDERED: Lurasidone(*) 60 MG TAB PO SCH (17:00)
[2018-06-20] MEDS ORDERED: Ibuprofen TAB* 600 MG PO ONE (17:47)
--- NOTE | 2018-06-20 18:37 | ED ---
Psychiatric Complaint - HPI Summary HPI Summary: Patient complains of having manic episode, states he can't sleep for 2 days, racing mind, feels is a hostile environment. Patient has pressured speech. History of schizoaffective disorder. Patient states he is compliant with all his medications. Patient followed by Dr. Chapin psychiatrist at [facility], and therapist. Patient states he has pattern of being depressed starting a Sanya every year which usually resolves with sprain, but states this year his symptoms are getting worse. Admits to marijuana use, denies EtOH or recreational drug use. Positive smoker. Denies SI, HI. - History Of Current Complaint Chief Complaint: EDMentalHealth Time Seen by Provider: 06/19/18 23:33 - Allergies/Home Medications Allergies/Adverse Reactions: Allergies Allergy/AdvReac Type Severity Reaction Status Date / Time No Known Allergies Allergy Verified 06/20/18 12:26 PMH/Surg Hx/FS Hx/Imm Hx Endocrine/Hematology History: Denies: Hx Anticoagulant Therapy Cardiovascular History: Denies: Hx Pacemaker/ICD History: Denies: Hx Dialysis Musculoskeletal History: Reports: Hx Back Problems - back pain Sensory History: Reports: Hx Contacts or Glasses Denies: Hx Legally Blind, Hx Deafness, Hx Hearing Aid Opthamlomology History: Reports: Hx Contacts or Glasses Denies: Hx Legally Blind Psychiatric History: Reports: Hx Anxiety, Hx Depression, Hx Inpatient Treatment , Hx Community Mental Health Tx, Hx Bipolar Disorder, Hx Suicide Attempt, Hx of Violent Episodes Against Others, Hx Substance Abuse Denies: Hx Eating Disorder Comment Only: Other Psychiatric Issues/Disorders - schizoaffective disorder - Immunization History Date of Tetanus Vaccine: utd Date of Influenza Vaccine: none Infectious Disease History: No Infectious Disease History: Denies: Traveled Outside the [place] in Last 30 Days - Family History Known Family History: Negative: Blood Disorder - Social History Alcohol Use: None Hx Substance Use: Yes Substance Use Type: Reports: Marijuana Substance Use Comment - Amount & Last Used: yesterday Smoking Status (MU): Former Smoker Review of Systems Constitutional: Negative Eyes: Negative ENT: Negative Cardiovascular: Negative Respiratory: Negative Gastrointestinal: Negative Genitourinary: Negative Musculoskeletal: Negative Skin: Negative Neurological: Negative Positive: Anxious All Other Systems Reviewed And Are Negative: Yes Physical Exam Triage Information Reviewed: Yes Vital Signs On Initial Exam: Initial Vitals Temp Pulse Resp BP Pulse Ox 98.9 F 110 20 137/90 97 06/19/18 23:25 06/19/18 23:25 06/19/18 23:25 06/19/18 23:25 06/19/18 23:25 Vital Signs Reviewed: Yes Appearance: Positive: Well-Appearing Skin: Positive: Warm Head/Face: Positive: Normal Head/Face Inspection Eyes: Positive: Normal ENT: Positive: Normal ENT inspection Neck: Positive: Supple Respiratory/Lung Sounds: Positive: Clear to Auscultation Cardiovascular: Positive: Normal Abdomen Description: Positive: Nontender Musculoskeletal: Positive: Normal Neurological: Positive: Normal Psychiatric: Positive: Normal AVPU Assessment: Alert - Rigoberto Coma Scale Best Eye Response: 4 - Spontaneous Best Motor Response: 6 - Obeys Commands Best Verbal Response: 5 - Oriented Coma Scale Total: 15 Diagnostics - Vital Signs Vital Signs Temp Pulse Resp BP Pulse Ox 06/20/18 17:43 100.8 F 108 16 145/88 97 06/20/18 07:10 98.7 F 106 18 113/67 97 06/19/18 23:25 98.9 F 110 20 137/90 97 - Laboratory Lab Results: Lab Results 06/19/18 06/19/18 06/20/18 Range/Units 23:59 23:59 00:02 WBC 14.8 H (3.5-10.8) 10^3/uL RBC 4.54 (4.18-5.48) 10^6 /uL Hgb 14.4 (14.0-18.0) g/dL Hct 41 (36-46) % MCV 91 (80-94) fL MCH 32 H (27-31) pg MCHC 35 (31-36) g/dL RDW 13 (10.5-15) % Plt Count 296 (150-450) 10^3/uL MPV 8.3 (7.4-10.4) fL Neut % (Auto) 84.5 % Lymph % (Auto) 8.0 % [place] % (Auto) 7.0 % Eos % (Auto) 0.3 % Baso % (Auto) 0.2 % Absolute Neuts (auto) 12.5 H (1.5-7.7) 10^3/ul Absolute Lymphs (auto) 1.2 (1.0-4.8) 10^3/ul Absolute Monos (auto) 1.0 H (0-0.8) 10^3/ul Absolute Eos (auto) 0 (0-0.6) 10^3/ul Absolute Basos (auto) 0 (0-0.2) 10^3/ul Absolute Nucleated RBC 0 10^3/ul Nucleated RBC % 0 Sodium (135-145) mmol/L Potassium (3.5-5.0) mmol/L Chloride (101-111) mmol/L Carbon Dioxide (22-32) mmol/L Anion Gap (2-11) mmol/L BUN (6-24) mg/dL Creatinine (0.67-1.17) mg/dL Est GFR ( Amer) (>60) Est GFR (Non-Af Amer) (>60) BUN/Creatinine Ratio (8-20) Glucose (70-100) mg/dL Calcium (8.6-10.3) mg/dL Total Bilirubin (0.2-1.0) mg/dL AST (13-39) U/L ALT (7-52) U/L Alkaline Phosphatase (34-104) U/L Total Protein (6.4-8.9) g/dL Albumin (3.2-5.2) g/dL Globulin (2-4) g/dL Albumin/Globulin Ratio (1-3) TSH (0.34-5.60) mcIU/mL Urine Color Florencia Urine Appearance Cloudy Urine pH 5.0 (5-9) Ur Specific [place] 1.032 H (1.010-1.030) Urine Protein 1+(30 mg/dl) A (Negative) Urine Ketones Trace A (Negative) Urine Blood 1+ A (Negative) Urine Nitrate Negative (Negative) Urine Bilirubin Negative (Negative) Urine Urobilinogen Negative (Negative) Ur Leukocyte Esterase Negative (Negative) Urine WBC (Auto) Trace(0-5/hpf) (Absent) Urine RBC (Auto) 1+(3-5/hpf) A (Absent) Urine Bacteria Absent (Absent) Urine Glucose Negative (Negative) Salicylates (<30) mg/dL Urine Opiates Screen None detected (None Detect) Acetaminophen mcg/mL Ur Barbiturates Screen None detected (None Detect) Ur Phencyclidine Scrn None detected (None Detect) Ur Amphetamines Screen None detected (None Detect) U Benzodiazepines Scrn None detected (None Detect) Urine Cocaine Screen None detected (None Detect) U Cannabinoids Screen Presumptive positive A (None Detect) Serum Alcohol (<10) mg/dL 06/20/18 Range/Units 00:02 WBC (3.5-10.8) 10^3/uL RBC (4.18-5.48) 10^6 /uL Hgb (14.0-18.0) g/dL Hct (36-46) % MCV (80-94) fL MCH (27-31) pg MCHC (31-36) g/dL RDW (10.5-15) % Plt Count (150-450) 10^3/uL MPV (7.4-10.4) fL Neut % (Auto) % Lymph % (Auto) % [place] % (Auto) % Eos % (Auto) % Baso % (Auto) % Absolute Neuts (auto) (1.5-7.7) 10^3/ul Absolute Lymphs (auto) (1.0-4.8) 10^3/ul Absolute Monos (auto) (0-0.8) 10^3/ul Absolute Eos (auto) (0-0.6) 10^3/ul Absolute Basos (auto) (0-0.2) 10^3/ul Absolute Nucleated RBC 10^3/ul Nucleated RBC % Sodium 137 (135-145) mmol/L Potassium 4.0 (3.5-5.0) mmol/L Chloride 106 (101-111) mmol/L Carbon Dioxide 24 (22-32) mmol/L Anion Gap 7 (2-11) mmol/L BUN 16 (6-24) mg/dL Creatinine 0.89 (0.67-1.17) mg/dL Est GFR ( Amer) 120.6 (>60) Est GFR (Non-Af Amer) 99.7 (>60) BUN/Creatinine Ratio 18.0 (8-20) Glucose 124 H (70-100) mg/dL Calcium 9.4 (8.6-10.3) mg/dL Total Bilirubin 1.10 H (0.2-1.0) mg/dL AST 26 (13-39) U/L ALT 28 (7-52) U/L Alkaline Phosphatase 76 (34-104) U/L Total Protein 7.3 (6.4-8.9) g/dL Albumin 4.6 (3.2-5.2) g/dL Globulin 2.7 (2-4) g/dL Albumin/Globulin Ratio 1.7 (1-3) TSH 0.65 (0.34-5.60) mcIU/mL Urine Color Urine Appearance Urine pH (5-9) Ur Specific [place] (1.010-1.030) Urine Protein (Negative) Urine Ketones (Negative) Urine Blood (Negative) Urine Nitrate (Negative) Urine Bilirubin (Negative) Urine Urobilinogen (Negative) Ur Leukocyte Esterase (Negative) Urine WBC (Auto) (Absent) Urine RBC (Auto) (Absent) Urine Bacteria (Absent) Urine Glucose (Negative) Salicylates < 2.50 (<30) mg/dL Urine Opiates Screen (None Detect) Acetaminophen < 15 mcg/mL Ur Barbiturates Screen (None Detect) Ur Phencyclidine Scrn (None Detect) Ur Amphetamines Screen (None Detect) U Benzodiazepines Scrn (None Detect) Urine Cocaine Screen (None Detect) U Cannabinoids Screen (None Detect) Serum Alcohol < 10 (<10) mg/dL Result Diagrams: 06/20/18 00:02 06/20/18 00:02 Lab Statement: Any lab studies that have been ordered have been reviewed, and results considered in the medical decision making process. Course/Dx - Course Course Of Treatment: The patient was apparently going to be discharged from EMS when he abruptly became very agitated and combative, requiring medication for same. He will need to be reevaluated by mental health. Pt will be signed out to Dr. Browning at shift change pending disposition. - Differential Dx/Clinical Impression Provider Diagnosis: Schizoaffective disorder, bipolar type Discharge - Sign-Out/Discharge Documenting (check all that apply): Sign-Out Patient Signing out patient TO: Pascual Browning - Discharge Plan Condition: Fair Patient Education Materials: Bipolar Disorder (ED), Bipolar Disorder (DC) Referrals: No Primary Care Phys,NOPCP [Primary Care Provider] - Additional Instructions: Per completion of a mental health evaluation, you are cleared for release and do not require inpatient psychiatric hospitalization at this time. Please go to nearest emergency room or call 911 if safety concerns arise or condition worsens. Important Phone Numbers: [facility] [phone] Suicide Prevention and Crisis Services........................ [phone] National Suicide Prevention Lifeline............................ 317-574-GHDS (8255) [facility]....................... [phone] Alcoholics Anonymous............................................... [phone] [facility].............. [phone] [facility] Police.............................................. [phone] - Billing Disposition and Condition Condition: FAIR
[2018-06-20] MEDS ORDERED: LORazepam TAB(*) 1 MG PO ONE (20:20)
[2018-06-20] MEDS ORDERED: OLANzapine TAB*ODT* 5 MG PO ONE (20:41)
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
[2018-06-20 21:22] VITALS: BP 149/89
== END 2018-06-20 22:45 ==
LOC: ED 23:17
DX: F20.9 Schizophrenia, unspecified (principal); F31.9 Bipolar disorder, unspecified; R00.0 Tachycardia, unspecified; F17.210 Nicotine dependence, cigarettes, uncomplicated
CPT/HCPCS: 36415; 80053; 80307; 80320; 80329; 81003; 81015; 84443; 85025; 87086; 93005; 99285; A9270-GY; G0480; J1630; J2060

== ENCOUNTER 2018-06-23 12:07 | Emergency (ER) | payer BC, MEDICAID ==
--- NOTE | 2018-06-23 12:32 | ED ---
Psychiatric Complaint - HPI Summary HPI Summary: This pt is a 32 y/o male, with hx of bipolar disorder, [facility] c/o manic behavior for the past few days. Pt reports he was admitted to [facility] for manic behavior and was discharged yesterday. Mother states pt is still very manic with pressured speech. Pt notes he spent all night watching basketball in the TV last night and was writing down statistics from the game. Denies SI or HI. He reports he was practicing martial arts last night while watching [email or web address] when he fell while spinning around at 22:00. Pt notes he sustained an abrasion on his back from the fall. Denies head strike or LOC. Denies tobacco, drug, and alcohol use. He notes he quit smoking 4 days ago. His medications include lamotrigine, Latuda, trazodone, vitamin B12. - History Of Current Complaint Chief Complaint: EDMentalHealth Time Seen by Provider: 06/23/18 12:23 Hx Obtained From: Patient Onset/Duration: Lasting Days, Still Present Timing: Days Severity Currently: Moderate Character: Manic Aggravating Factor(s): Nothing Alleviating Factor(s): Nothing Related History: Positive For: Prior Psychiatric Issues Has Suicidal: Denies: Thoughts, With A Plan Has Homicidal: Denies: Thoughts, With A Plan - Allergies/Home Medications Allergies/Adverse Reactions: Allergies Allergy/AdvReac Type Severity Reaction Status Date / Time No Known Allergies Allergy Verified 06/23/18 12:20 Home Medications: Home Medications Lurasidone(*) [Latuda] 60 mg PO DAILY 06/23/18 [History Confirmed 06/23/18] traZODone TAB* [Desyrel TAB*] 50 mg PO BEDTIME 06/23/18 [History Confirmed 06/23] PMH/Surg Hx/FS Hx/Imm Hx Endocrine/Hematology History: Denies: Hx Anticoagulant Therapy Cardiovascular History: Denies: Hx Pacemaker/ICD History: Denies: Hx Dialysis Musculoskeletal History: Reports: Hx Back Problems - back pain Sensory History: Reports: Hx Contacts or Glasses Denies: Hx Legally Blind, Hx Deafness, Hx Hearing Aid Opthamlomology History: Reports: Hx Contacts or Glasses Denies: Hx Legally Blind Psychiatric History: Reports: Hx Anxiety, Hx Depression, Hx Inpatient Treatment , Hx Community Mental Health Tx, Hx Bipolar Disorder, Hx Suicide Attempt, Hx of Violent Episodes Against Others, Hx Substance Abuse Denies: Hx Eating Disorder Comment Only: Other Psychiatric Issues/Disorders - schizoaffective disorder - Immunization History Date of Tetanus Vaccine: utd Date of Influenza Vaccine: none Infectious Disease History: No Infectious Disease History: Denies: Traveled Outside the [place] in Last 30 Days - Family History Known Family History: Negative: Blood Disorder - Social History Alcohol Use: None Hx Substance Use: Yes Substance Use Type: Reports: Marijuana Substance Use Comment - Amount & Last Used: yesterday Smoking Status (MU): Former Smoker Review of Systems Negative: Fever, Chills Psychological: Other - POS: manic Negative: Other - NEG: SI or HI All Other Systems Reviewed And Are Negative: Yes Physical Exam - Summary Physical Exam Summary: VITAL SIGNS: Reviewed. GENERAL: Patient is a well-developed and nourished male who is lying comfortable in the stretcher. Patient is not in any acute respiratory distress. HEAD AND FACE: Normocephalic EYES: PERRLA, EOMI x 2. EARS: Hearing grossly intact. MOUTH: Oropharynx within normal limits. NECK: Supple, trachea is midline, no adenopathy, no JVD, no carotid bruit. CHEST: Symmetric, no tenderness at palpation LUNGS: Clear to auscultation bilaterally. No wheezing or crackles. CVS: Regular rate and rhythm, S1 and S2 present, no murmurs or gallops appreciated. ABDOMEN: Soft, non-tender. Bowel sounds are normal. No abdominal abnormal pulsations. EXTREMITIES: Full ROM in all major joints, no edema, no cyanosis or clubbing. NEURO: Alert and oriented x 3. No acute neurological deficits. Speech is normal and follows commands. SKIN: Dry and warm. Small abrasion on the right side of the middle of the back. PSYCH: Patient is manic with pressured speech. Triage Information Reviewed: Yes Vital Signs On Initial Exam: Initial Vitals Temp Pulse Resp BP Pulse Ox 99.3 F 132 20 171/123 97 06/23/18 12:15 06/23/18 12:15 06/23/18 12:15 06/23/18 12:15 06/23/18 12:15 Vital Signs Reviewed: Yes Diagnostics - Vital Signs Vital Signs Temp Pulse Resp BP Pulse Ox 06/23/18 12:15 99.3 F 132 20 171/123 97 - Laboratory Result Diagrams: 06/23/18 12:45 06/23/18 12:45 Lab Statement: Any lab studies that have been ordered have been reviewed, and results considered in the medical decision making process. Re-Evaluation - Re-Evaluation First Eval Re-Evaluation Time: 12:33 Comment: Pt is medically cleared. Course/Dx - Course Assessment/Plan: Blood work w/o a significant abnormality. He is medically cleared. He is awaiting for a MHE. Patient is hemodynamically stable and A+O x 3. Pt had a mental health evaulation and his case was reviewed by Dr. Staples , psychiatrist. Dr. Staples cleared the pt for discharge. Pt will be discharged home with outpatient follow up at [facility] with dx schizoaffective disorder. - Differential Dx/Clinical Impression Differential Diagnosis/HQI/PQRI: Positive: Acute Psychosis, Anxiety, Bipolar Disorder, Depression Provider Diagnosis: Schizoaffective disorder Discharge - Sign-Out/Discharge Documenting (check all that apply): Patient Departure - Discharge home Patient Received Moderate/Deep Sedation with Procedure: No - Discharge Plan Condition: Stable Disposition: HOME Referrals: [facility] [Outside] [facility] [Outside] - Billing Disposition and Condition Condition: STABLE Disposition: Home - Attestation Statements Document Initiated by Carline: Yes Documenting Scribe: Kristie Choudhury Provider For Whom Carline is Documenting (Include Credential): Velasquez Mc MD Scribe Attestation: Kristie Patrick, scribed for Velasquez Mc MD on 06/23/18 at 1841. Scribe Documentation Reviewed: Yes Provider Attestation: The documentation as recorded by the Kristie rebolledo accurately reflects the service I personally performed and the decisions made by me, Velasquez Mc MD Status of Scribe Document: Viewed
[2018-06-23 13:00] LABS: ABS Basophils 0 10^3/ul (0-0.2); ABS Eosinophils 0.1 10^3/ul (0-0.6); ABS Lymphocytes 1.3 10^3/ul (1.0-4.8); ABS Nucleated RBC 0 10^3/ul; Eosinophil % 0.8 %; Hematocrit 42 % (36-46); Hemoglobin 14.4 g/dL (14.0-18.0); Lymphocyte % 13.7 %; Mean Corpuscular HGB Conc 34 g/dL (31-36); Mean Corpuscular Hemoglobin 31 pg (27-31); Mean Corpuscular Volume 91 fL (80-94); Mean Platelet Volume 8.6 fL (7.4-10.4); Nucleated Red Blood Cells % 0.1; Platelet Count 273 10^3/uL (150-450); Red Blood Count 4.64 10^6 /uL (4.18-5.48); Red Cell Distribution Width 13 % (10.5-15); White Blood Count 9.4 10^3/uL (3.5-10.8)
[2018-06-23 13:16] LABS: ALT 31 U/L (7-52); AST 40 U/L (13-39); Albumin 4.2 g/dL (3.2-5.2); Albumin/Globulin Ratio 1.4 (1-3); Alkaline Phosphatase 73 U/L (34-104); Anion Gap 8 mmol/L (2-11); BUN/Creatinine Ratio 11.1 (8-20); Blood Urea Nitrogen 10 mg/dL (6-24); CO2 Carbon Dioxide 25 mmol/L (22-32); Calcium 9.3 mg/dL (8.6-10.3); Chloride 105 mmol/L (101-111); EGFR African American 119.1 (>60); EGFR Non-African American 98.4 (>60); Glucose 146 mg/dL (70-100); Potassium 3.6 mmol/L (3.5-5.0); Sodium 138 mmol/L (135-145); Total Protein 7.2 g/dL (6.4-8.9)
[2018-06-23 13:29] LABS: Acetaminophen < 15 mcg/mL; Alcohol < 10 mg/dL (<10); Salicylate < 2.50 mg/dL (<30)
[2018-06-23 13:42] LABS: TSH (Thyroid Stimulating Horm) 1.12 mcIU/mL (0.34-5.60)
[2018-06-23 14:35] LABS: Urine Appearance Cloudy; Urine Bacteria Absent (Absent); Urine Bilirubin Negative (Negative); Urine Blood Negative (Negative); Urine Color Amber; Urine Glucose Negative (Negative); Urine Ketones Trace (Negative); Urine Nitrite Negative (Negative); Urine Protein 1+(30 mg/dL) (Negative); Urine Red Blood Cell Trace(0-2/hpf) (Absent); Urine Specific Gravity 1.027 (1.010-1.030); Urine Urobilinogen Negative (Negative); Urine White Blood Cell Trace(0-5/hpf) (Absent)
[2018-06-23 14:43] LABS: Barbiturates Urine Screen None Detected (None Detect); Benzodiazepine Urine Screen None Detected (None Detect); Urine Cannabinoids Screen Presumptive Positive (None Detect)
[2018-06-23 19:38] VITALS: BP 144/93
== END 2018-06-23 19:36 | disposition home or self-care (01) ==
LOC: ED 12:07
DX: F25.9 Schizoaffective disorder, unspecified (principal); Z87.891 Personal history of nicotine dependence; F31.9 Bipolar disorder, unspecified
CPT/HCPCS: 36415; 80053; 80307; 80320; 80329; 81003; 81015; 84443; 85025; 87086; 99285; G0480

== ENCOUNTER 2019-08-21 22:35 | Inpatient (IN) ==
[2019-08-21 23:10] LABS: ABS Eosinophils 0.2 10^3/ul (0-0.6); ABS Lymphocytes 2.3 10^3/ul (1.0-4.8); ABS Monocytes 0.9 10^3/ul (0-0.8); Eosinophil % 1.6 %; Hematocrit 40 % (42-52); Hemoglobin 13.8 g/dL (14.0-18.0); Mean Corpuscular HGB Conc 35 g/dL (31-36); Mean Corpuscular Hemoglobin 31 pg (27-31); Mean Corpuscular Volume 89 fL (80-94); Mean Platelet Volume 8.3 fL (7.4-10.4); Nucleated Red Blood Cells % 0.1; Platelet Count 335 10^3/uL (150-450); Red Blood Count 4.51 10^6 /uL (4.18-5.48); Red Cell Distribution Width 13 % (10-15)
[2019-08-21 23:23] LABS: ALT 28 U/L (7-52); AST 26 U/L (13-39); Albumin 4.1 g/dL (3.2-5.2); Albumin/Globulin Ratio 1.5 (1-3); Alkaline Phosphatase 100 U/L (34-104); Anion Gap 6 mmol/L (2-11); BUN/Creatinine Ratio 16.7 (8-20); Blood Urea Nitrogen 15 mg/dL (6-24); CO2 Carbon Dioxide 26 mmol/L (22-32); Calcium 8.8 mg/dL (8.6-10.3); Chloride 106 mmol/L (101-111); EGFR African American 117.6 (>60); EGFR Non-African American 97.2 (>60); Globulin 2.7 g/dL (2-4); Glucose 116 mg/dL (70-100); Potassium 3.6 mmol/L (3.5-5.0); Sodium 138 mmol/L (135-145); Total Protein 6.8 g/dL (6.4-8.9)
[2019-08-22] LABS: Acetaminophen < 15 mcg/mL; Alcohol, S < 10 mg/dL (<10); Salicylate < 2.50 mg/dL (<30)
[2019-08-22 00:15] LABS: TSH (Thyroid Stimulating Horm) 1.34 mcIU/mL (0.34-5.60)
[2019-08-22 02:03] LABS: Urine Appearance Clear; Urine Bilirubin Negative (Negative); Urine Blood Negative (Negative); Urine Color Straw; Urine Glucose Negative (Negative); Urine Ketones Negative (Negative); Urine Nitrite Negative (Negative); Urine Protein Negative (Negative); Urine Specific Gravity 1.004 (1.010-1.030); Urine Urobilinogen Negative (Negative)
[2019-08-22 02:21] LABS: Urine Benzodiazepine Screen None Detected (None Detect); Urine Opiates Screen None Detected (None Detect)
[2019-08-22] MEDS ORDERED: clonazePAM 1 mg TAB(*) PO ONE ×2 (02:25→06:01)
[2019-08-22] MEDS: clonazePAM 1 mg TAB(*) PO PRN ×2 (14:25→22:29)
[2019-08-22] MEDS ORDERED: OLANzapine 5 mg TAB*ODT ONE (15:56)
[2019-08-22] MEDS ORDERED: lamoTRIgine 100 mg TAB (*) PO SCH (21:00)
[2019-08-23] MEDS: Lurasidone 60 mg TAB (*) PO SCH (08:46)
[2019-08-23] MEDS: clonazePAM 1 mg TAB(*) PO PRN ×2 (14:02→22:15)
[2019-08-23] MEDS ORDERED: LORazepam 1 mg TAB (*) PO ONE (17:03)
[2019-08-23] MEDS ORDERED: clonazePAM 1 mg TAB(*) PO ONE (17:15)
[2019-08-23] MEDS: CMCS: Lamotrigine XR 300 mg TAB (NF) PO SCH (22:14)
[2019-08-24] MEDS: clonazePAM 1 mg TAB(*) PO PRN ×3 (06:19→20:57)
[2019-08-24] MEDS: Lurasidone 60 mg TAB (*) PO SCH (08:59)
[2019-08-24] MEDS: CMCS: Lamotrigine XR 300 mg TAB (NF) PO SCH (20:54)
[2019-08-25] MEDS: clonazePAM 1 mg TAB(*) PO PRN ×3 (02:39→15:21)
[2019-08-25] MEDS: Lurasidone 60 mg TAB (*) PO SCH ×2 (12:42→21:42)
[2019-08-25] MEDS: CMCS: Lamotrigine XR 300 mg TAB (NF) PO SCH (21:44)
[2019-08-26] MEDS: clonazePAM 1 mg TAB(*) PO PRN ×3 (04:29→18:08)
[2019-08-26 07:51] LABS: HDL Cholesterol 33.2 mg/dL
[2019-08-26] MEDS ORDERED: clonazePAM 1 mg TAB(*) PO ONE (15:30)
[2019-08-26] MEDS ORDERED: clonazePAM 1 mg TAB(*) ONE (15:35)
[2019-08-26] MEDS: CMCS: Lamotrigine XR 300 mg TAB (NF) PO SCH (21:21)
[2019-08-26] MEDS: Lurasidone 60 mg TAB (*) PO SCH (21:22)
[2019-08-27] MEDS: clonazePAM 1 mg TAB(*) PO PRN ×3 (03:33→17:04)
[2019-08-27] MEDS: Lurasidone 60 mg TAB (*) PO SCH (20:34)
[2019-08-27] MEDS: CMCS: Lamotrigine XR 300 mg TAB (NF) PO SCH (20:35)
[2019-08-28] MEDS: clonazePAM 1 mg TAB(*) PO PRN ×4 (00:30→22:28)
[2019-08-28] MEDS: CMCS: Lamotrigine XR 300 mg TAB (NF) PO SCH (20:31)
[2019-08-28] MEDS: Lurasidone 60 mg TAB (*) PO SCH (20:32)
[2019-08-29] MEDS: clonazePAM 1 mg TAB(*) PO PRN ×2 (08:30→17:28)
[2019-08-29] MEDS: CMCS: Lamotrigine XR 300 mg TAB (NF) PO SCH (20:24)
[2019-08-29] MEDS: Lurasidone 60 mg TAB (*) PO SCH (20:24)
[2019-08-30] MEDS: clonazePAM 1 mg TAB(*) PO PRN ×2 (03:09→09:14)
[2019-08-30 08:04] VITALS: BP 94/79
== END 2019-08-30 15:41 | disposition home or self-care (01) | DRG 753 ==
LOC: ED 22:35 → BSU 08-22 12:57
PROVIDERS: ADMIT Psychiatry & Neurology Psychiatry; ATTEND Psychiatry & Neurology Psychiatry

== ENCOUNTER 2019-09-28 01:50 | Inpatient (IN) ==
[2019-09-28 04:03] LABS: ABS Eosinophils 0.1 10^3/ul (0-0.6); ABS Lymphocytes 1.9 10^3/ul (1.0-4.8); ABS Monocytes 0.7 10^3/ul (0-0.8); ABS Neutrophils 7.2 10^3/ul (1.5-7.7); Eosinophil % 0.6 %; Hematocrit 42 % (42-52); Hemoglobin 14.6 g/dL (14.0-18.0); Lymphocyte % 19.1 %; Mean Corpuscular HGB Conc 35 g/dL (31-36); Mean Corpuscular Hemoglobin 31 pg (27-31); Mean Corpuscular Volume 88 fL (80-94); Mean Platelet Volume 8.3 fL (7.4-10.4); Platelet Count 329 10^3/uL (150-450); Red Blood Count 4.74 10^6 /uL (4.18-5.48); Red Cell Distribution Width 14 % (10-15); White Blood Count 9.9 10^3/uL (3.5-10.8)
[2019-09-28 04:17] LABS: ALT 33 U/L (7-52); AST 23 U/L (13-39); Albumin 4.4 g/dL (3.2-5.2); Albumin/Globulin Ratio 1.4 (1-3); Alkaline Phosphatase 119 U/L (34-104); Anion Gap 6 mmol/L (2-11); BUN/Creatinine Ratio 18.9 (8-20); Blood Urea Nitrogen 17 mg/dL (6-24); CO2 Carbon Dioxide 26 mmol/L (22-32); Calcium 9.6 mg/dL (8.6-10.3); Chloride 104 mmol/L (101-111); EGFR African American 117.6 (>60); EGFR Non-African American 97.2 (>60); Globulin 3.1 g/dL (2-4); Glucose 102 mg/dL (70-100); Potassium 3.9 mmol/L (3.5-5.0); Sodium 136 mmol/L (135-145); Total Protein 7.5 g/dL (6.4-8.9)
[2019-09-28 04:32] LABS: Urine Appearance Clear; Urine Bilirubin Negative (Negative); Urine Blood Negative (Negative); Urine Color Yellow; Urine Glucose Negative (Negative); Urine Ketones Negative (Negative); Urine Nitrite Negative (Negative); Urine Protein Negative (Negative); Urine Specific Gravity 1.014 (1.010-1.030); Urine Urobilinogen Negative (Negative)
[2019-09-28 04:39] LABS: Acetaminophen < 15 mcg/mL; Alcohol, S 10 mg/dL (<10); Salicylate < 2.50 mg/dL (<30)
[2019-09-28 04:52] LABS: TSH Ultra Thyroid Stim Horm 3.14 mcIU/mL (0.34-5.60)
[2019-09-28 04:53] LABS: Urine Benzodiazepine Screen None Detected (None Detect); Urine Cannabinoids Screen None Detected (None Detect); Urine Opiates Screen None Detected (None Detect)
[2019-09-28] MEDS ORDERED: Al Hydrox/Mg Hydrox/Simet LIQ 30 ML UDC PO PRN (14:05)
[2019-09-28] MEDS ORDERED: LAMOTRIGINE 300 MG PO SCH (21:00)
[2019-09-29] MEDS: Vitamin THERAPEUTIC TAB PO SCH (08:56)
[2019-09-29] MEDS: Sulfamethox/Trimethoprim DS TAB 800/160 mg PO SCH ×2 (12:50→21:13)
[2019-09-29] MEDS: Neomycin/Polym/Bacit TOP OINT 15 GM TOPICAL SCH ×2 (13:34→21:21)
[2019-09-29] MEDS: CMC:Lamotrigine XR 300 mg TAB (NF) PO SCH (21:12)
[2019-09-30 07:55] LABS: ABS Eosinophils 0.1 10^3/ul (0-0.6); ABS Lymphocytes 1.5 10^3/ul (1.0-4.8); ABS Monocytes 0.5 10^3/ul (0-0.8); ABS Neutrophils 6.2 10^3/ul (1.5-7.7); Eosinophil % 0.8 %; Hematocrit 40 % (42-52); Hemoglobin 13.9 g/dL (14.0-18.0); Lymphocyte % 18.6 %; Mean Corpuscular HGB Conc 35 g/dL (31-36); Mean Corpuscular Hemoglobin 31 pg (27-31); Mean Corpuscular Volume 89 fL (80-94); Mean Platelet Volume 8.5 fL (7.4-10.4); Nucleated Red Blood Cells % 0.1; Platelet Count 288 10^3/uL (150-450); Red Blood Count 4.51 10^6 /uL (4.18-5.48); Red Cell Distribution Width 14 % (10-15); White Blood Count 8.3 10^3/uL (3.5-10.8)
[2019-09-30 08:06] LABS: Calcium 9.2 mg/dL (8.6-10.3); EGFR African American 125.6 (>60); EGFR Non-African American 103.8 (>60); HDL Cholesterol 36.6 mg/dL
[2019-09-30] MEDS: Vitamin THERAPEUTIC TAB PO SCH ×2 (09:13→09:17)
[2019-09-30] MEDS: Sulfamethox/Trimethoprim DS TAB 800/160 mg PO SCH ×2 (09:13→21:29)
[2019-09-30] MEDS: Neomycin/Polym/Bacit TOP OINT 15 GM TOPICAL SCH ×3 (09:43→21:54)
[2019-09-30] MEDS: CMC:Lamotrigine XR 300 mg TAB (NF) PO SCH (21:30)
[2019-10-01] MEDS: Neomycin/Polym/Bacit TOP OINT 15 GM TOPICAL SCH ×4 (05:58→22:29)
[2019-10-01] MEDS: Sulfamethox/Trimethoprim DS TAB 800/160 mg PO SCH ×2 (08:58→21:37)
[2019-10-01] MEDS: Vitamin THERAPEUTIC TAB PO SCH (08:58)
[2019-10-01] MEDS: Ammonium Lactate 12% 1 APPLIC TUBE TOPICAL SCH ×2 (14:41→22:29)
[2019-10-01] MEDS: CMC:Lamotrigine XR 300 mg TAB (NF) PO SCH (21:36)
[2019-10-02] MEDS: Vitamin THERAPEUTIC TAB PO SCH (09:04)
[2019-10-02] MEDS: Sulfamethox/Trimethoprim DS TAB 800/160 mg PO SCH ×2 (09:04→20:35)
[2019-10-02] MEDS: Neomycin/Polym/Bacit TOP OINT 15 GM TOPICAL SCH ×3 (11:43→20:38)
[2019-10-02] MEDS: Ammonium Lactate 12% 1 APPLIC TUBE TOPICAL SCH ×2 (11:43→20:38)
[2019-10-02] MEDS: CMC:Lamotrigine XR 300 mg TAB (NF) PO SCH (20:34)
[2019-10-03] MEDS: Vitamin THERAPEUTIC TAB PO SCH (08:11)
[2019-10-03] MEDS: Sulfamethox/Trimethoprim DS TAB 800/160 mg PO SCH ×2 (08:13→19:19)
[2019-10-03] MEDS: Ammonium Lactate 12% 1 APPLIC TUBE TOPICAL SCH ×3 (11:05→19:23)
[2019-10-03] MEDS: Neomycin/Polym/Bacit TOP OINT 15 GM TOPICAL SCH ×3 (11:05→19:23)
[2019-10-03] MEDS: CMC:Lamotrigine XR 300 mg TAB (NF) PO SCH (19:40)
[2019-10-04] MEDS: Vitamin THERAPEUTIC TAB PO SCH (07:57)
[2019-10-04] MEDS: Sulfamethox/Trimethoprim DS TAB 800/160 mg PO SCH ×2 (07:57→20:30)
[2019-10-04] MEDS: Ammonium Lactate 12% 1 APPLIC TUBE TOPICAL SCH ×2 (08:00→22:00)
[2019-10-04] MEDS: Neomycin/Polym/Bacit TOP OINT 15 GM TOPICAL SCH ×3 (08:00→22:00)
[2019-10-04] MEDS: CMC:Lamotrigine XR 300 mg TAB (NF) PO SCH (20:28)
[2019-10-05] MEDS: Sulfamethox/Trimethoprim DS TAB 800/160 mg PO SCH ×2 (08:54→20:40)
[2019-10-05] MEDS: Vitamin THERAPEUTIC TAB PO SCH (08:55)
[2019-10-05] MEDS: Ammonium Lactate 12% 1 APPLIC TUBE TOPICAL SCH ×2 (09:20→20:42)
[2019-10-05] MEDS: Neomycin/Polym/Bacit TOP OINT 15 GM TOPICAL SCH ×3 (09:20→21:38)
[2019-10-05] MEDS: CMC:Lamotrigine XR 300 mg TAB (NF) PO SCH (20:40)
[2019-10-06] MEDS: Sulfamethox/Trimethoprim DS TAB 800/160 mg PO SCH (08:01)
[2019-10-06] MEDS: Vitamin THERAPEUTIC TAB PO SCH (08:02)
[2019-10-06] MEDS: Ammonium Lactate 12% 1 APPLIC TUBE TOPICAL SCH ×2 (08:57→20:34)
[2019-10-06] MEDS: Neomycin/Polym/Bacit TOP OINT 15 GM TOPICAL SCH ×2 (08:58→13:52)
[2019-10-06] MEDS: CMC:Lamotrigine XR 300 mg TAB (NF) PO SCH (20:31)
[2019-10-07] MEDS: Ammonium Lactate 12% 1 APPLIC TUBE TOPICAL SCH ×2 (08:50→20:56)
[2019-10-07] MEDS: Vitamin THERAPEUTIC TAB PO SCH (08:51)
[2019-10-07] MEDS: CMC:Lamotrigine XR 300 mg TAB (NF) PO SCH (20:56)
[2019-10-08] MEDS: Ammonium Lactate 12% 1 APPLIC TUBE TOPICAL SCH (08:33)
[2019-10-08] MEDS: Vitamin THERAPEUTIC TAB PO SCH (08:34)
[2019-10-08 09:45] VITALS: BP 115/75
== END 2019-10-08 13:27 | disposition home or self-care (01) | DRG 885 ==
LOC: ED 01:50 → BSU 13:30
PROVIDERS: ADMIT Psychiatry & Neurology Psychiatry; ATTEND Psychiatry & Neurology Psychiatry

== ENCOUNTER 2020-07-14 00:58 | Inpatient (IN) ==
[2020-07-14 01:35] LABS: Urine Appearance Clear; Urine Bilirubin Negative (Negative); Urine Blood 1+ (Negative); Urine Color Amber; Urine Glucose Negative (Negative); Urine Ketones Trace (Negative); Urine Nitrite Negative (Negative); Urine Protein 1+(30 mg/dL) (Negative); Urine Specific Gravity 1.032 (1.002-1.030); Urine Urobilinogen Negative (Negative)
[2020-07-14 01:45] LABS: ABS Eosinophils 0.1 10^3/ul (0-0.6); ABS Lymphocytes 2.1 10^3/ul (1.0-4.8); ABS Monocytes 0.7 10^3/ul (0-0.8); Eosinophil % 0.9 %; Hematocrit 41 % (42-52); Hemoglobin 14.7 g/dL (14.0-18.0); Lymphocyte % 21.4 %; Mean Corpuscular HGB Conc 36 g/dL (31-36); Mean Corpuscular Hemoglobin 31 pg (27-31); Mean Corpuscular Volume 87 fL (80-94); Mean Platelet Volume 8.9 fL (7.4-10.4); Platelet Count 338 10^3/uL (150-450); Red Blood Count 4.74 10^6 /uL (4.18-5.48); Red Cell Distribution Width 14 % (10-15)
[2020-07-14 01:50] LABS: Urine Benzodiazepine Screen None Detected (None Detect); Urine Cannabinoids Screen Presumptive Positive (None Detect); Urine Opiates Screen None Detected (None Detect)
[2020-07-14 01:59] LABS: Urine Bacteria Absent (Absent); Urine Red Blood Cell 2+(6-10/hpf) (Absent); Urine White Blood Cell Trace(0-5/hpf) (Absent)
[2020-07-14 02:02] LABS: Acetaminophen < 15 mcg/mL; Alcohol, S < 10 mg/dL (<10); Salicylate < 2.50 mg/dL (<30)
[2020-07-14 02:03] LABS: ALT 33 U/L (7-52); AST 20 U/L (13-39); Albumin 4.4 g/dL (3.2-5.2); Albumin/Globulin Ratio 1.4 (1-3); Alkaline Phosphatase 115 U/L (34-104); Anion Gap 10 mmol/L (2-11); Blood Urea Nitrogen 19 mg/dL (6-24); CO2 Carbon Dioxide 21 mmol/L (22-32); Calcium 9.4 mg/dL (8.6-10.3); Chloride 106 mmol/L (101-111); EGFR African American 98.9 (>60); EGFR Non-African American 81.8 (>60); Globulin 3.2 g/dL (2-4); Glucose 131 mg/dL (70-100); Potassium 3.5 mmol/L (3.5-5.0); Sodium 137 mmol/L (135-145); Total Protein 7.6 g/dL (6.4-8.9)
[2020-07-14 02:17] LABS: TSH Ultra Thyroid Stim Horm 2.86 mcIU/mL (0.34-5.60)
[2020-07-14] MEDS ORDERED: Al Hydrox/Mg Hydrox/Simet LIQ 30 ML UDC PO PRN (06:05)
[2020-07-14] MEDS: Cholecalciferol (VIT D3) 1,000 unit TAB PO SCH (09:55)
[2020-07-14] MEDS: CMCS: Lamotrigine XR 300 mg TAB (NF) PO SCH ×2 (09:56→11:05)
[2020-07-14] MEDS: Vitamin THERAPEUTIC TAB PO SCH (09:56)
[2020-07-15] MEDS: Vitamin THERAPEUTIC TAB PO SCH (08:12)
[2020-07-15] MEDS: Cholecalciferol (VIT D3) 1,000 unit TAB PO SCH (08:13)
[2020-07-16] MEDS: Vitamin THERAPEUTIC TAB PO SCH (08:26)
[2020-07-16] MEDS: Cholecalciferol (VIT D3) 1,000 unit TAB PO SCH (08:27)
[2020-07-17 07:57] LABS: HDL Cholesterol 28.2 mg/dL
[2020-07-17] MEDS: Vitamin THERAPEUTIC TAB PO SCH (09:44)
[2020-07-17] MEDS: Cholecalciferol (VIT D3) 1,000 unit TAB PO SCH (09:45)
[2020-07-18] MEDS: Cholecalciferol (VIT D3) 1,000 unit TAB PO SCH (08:33)
[2020-07-18] MEDS: Vitamin THERAPEUTIC TAB PO SCH (08:33)
[2020-07-19] MEDS: Cholecalciferol (VIT D3) 1,000 unit TAB PO SCH (08:18)
[2020-07-19] MEDS: Vitamin THERAPEUTIC TAB PO SCH (08:19)
[2020-07-19 09:46] VITALS: BP 141/66
== END 2020-07-19 17:30 | disposition home or self-care (01) | DRG 750 ==
LOC: ED 00:58 → BSU 05:00
PROVIDERS: ADMIT Psychiatry & Neurology Psychiatry; ATTEND Psychiatry & Neurology Psychiatry